=== PATIENT | female | born 1935 | race Caucasian/White ===

== ENCOUNTER 2017-01-27 17:55 | Inpatient (IN) | payer MEDICARE, BC ==
[2017-01-27] MEDS ORDERED: SODIUM CHLORIDE 0.9% 500 ML IV STA (18:14)
[2017-01-27] MEDS ORDERED: ACETAMINOPHEN TAB 500 MG TAB PO STA (18:14)
--- NOTE | 2017-01-27 18:16 | ED ---
Fever HPI - General Chief Complaint: Fever Stated Complaint: Fever Time Seen by Provider: 01/27/17 18:09 Source: patient, RN notes reviewed Mode of arrival: ambulatory Limitations: no limitations - History of Present Illness Initial Comments: 81-year-old female presents emergency Department with chief complaint of fever. Patient states that she was released from the hospital last week from [facility] for chest pain/pneumonia. Patient took antibiotics for 3 days after being discharged. She was in the hospital 8 days. Patient states that she does not have any complaints no family member states that she's been coughing as well to fever. Patient saw primary care physician yesterday and was told that she had some fluid in her right lung. Patient denies any dysuria or hematuria. Patient states she has a slight scratchy sore throat but nothing much. Patient denies any recent Tylenol or ibuprofen. 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 Patient states that she had one treatment of chemotherapy ended up in the hospital for her chest pain. Patient is Scheduled Next Week for Chemotherapy. Patient's Oncologist Is Dr. perry - Related Data Home Medications Medication Instructions Recorded Confirmed Atorvastatin [Lipitor] 40 mg PO DAILY 01/27/17 01/27/17 Levothyroxine Sodium [Synthroid] 88 mcg PO DAILY 01/27/17 01/27/17 Lidocaine-Prilocaine Cream [Emla 1 applic TOPICAL DAILY PRN 01/27/17 01/27/17 Cream 2.5%/2.5%] Metoprolol Succinate (ER) [Toprol 25 mg PO DAILY 01/27/17 01/27/17 Xl] Nitroglycerin Sl Tabs [Nitrostat] 0.4 mg SUBLINGUAL Q5M PRN 01/27/17 01/27/17 Allergies Allergy/AdvReac Type Severity Reaction Status Date / Time iodine Allergy Swelling Verified 01/27/17 18:47 of Eyes Review of Systems ROS Statement: Those systems with pertinent positive or pertinent negative responses have been documented in the HPI. ROS Other: All systems not noted in ROS Statement are negative. Past Medical History Past Medical History: Cancer, Hyperlipidemia, Hypertension, Thyroid Disorder Additional Past Medical History / Comment(s): leukemia History of Any Multi-Drug Resistant Organisms: None Reported Past Surgical History: Bladder Surgery Past Psychological History: No Psychological Hx Reported Smoking Status: Former smoker Past Alcohol Use History: None Reported Past Drug Use History: None Reported General Exam Limitations: no limitations General appearance: alert, in no apparent distress Head exam: Present: atraumatic, normocephalic, normal inspection Eye exam: Present: normal appearance, PERRL, EOMI. Absent: scleral icterus, conjunctival injection, periorbital swelling ENT exam: Present: normal exam, normal oropharynx, mucous membranes moist, TM's normal bilaterally, normal external ear exam Neck exam: Present: normal inspection, full ROM. Absent: tenderness, meningismus, lymphadenopathy Respiratory exam: Present: normal lung sounds bilaterally. Absent: respiratory distress, wheezes, rales, rhonchi, stridor Cardiovascular Exam: Present: regular rate, normal rhythm, normal heart sounds. Absent: systolic murmur, diastolic murmur, rubs, gallop, clicks GI/Abdominal exam: Present: soft, normal bowel sounds. Absent: distended, tenderness, guarding, rebound, rigid Neurological exam: Present: alert Skin exam: Present: warm, dry Course Vital Signs 01/27/17 01/27/17 18:03 19:13 Temperature 102.3 F H 98.6 F Pulse Rate 79 88 Respiratory 18 18 Rate Blood Pressure 116/57 139/62 O2 Sat by Pulse 92 L 94 L Oximetry Medical Decision Making - Lab Data Result diagrams: 01/27/17 18:45 01/27/17 18:45 Lab Results 01/27/17 01/27/17 01/27/17 Range/Units 18:08 18:08 18:45 WBC 19.3 H (3.8-10.6) k/uL RBC 3.45 L (3.80-5.40) m/uL Hgb 10.7 L (11.4-16.0) gm/dL Hct 30.6 L (34.0-46.0) % MCV 88.6 (80.0-100.0) fL MCH 31.0 (25.0-35.0) pg MCHC 35.1 (31.0-37.0) g/dL RDW 17.9 H (11.5-15.5) % Plt Count 31 L* (150-450) k/uL Sodium (137-145) mmol/L Potassium (3.5-5.1) mmol/L Chloride (98-107) mmol/L Carbon Dioxide (22-30) mmol/L Anion Gap mmol/L BUN (7-17) mg/dL Creatinine (0.52-1.04) mg/dL Est GFR (MDRD) Af Amer (>60 ml/min/1.73 sqM) Est GFR (MDRD) Non-Af (>60 ml/min/1.73 sqM) Glucose (74-99) mg/dL Plasma Lactic Acid Wu (0.7-2.0) mmol/L Calcium (8.4-10.2) mg/dL Total Bilirubin (0.2-1.3) mg/dL AST (14-36) U/L ALT (9-52) U/L Alkaline Phosphatase (38-126) U/L Total Protein (6.3-8.2) g/dL Albumin (3.5-5.0) g/dL Urine Color Yellow Urine Appearance Cloudy H (Clear) Urine pH 6.0 (5.0-8.0) Ur Specific Wildrose 1.021 (1.001-1.035) Urine Protein 1+ H (Negative) Urine Glucose (UA) Negative (Negative) Urine Ketones Negative (Negative) Urine Blood Small H (Negative) Urine Nitrite Negative (Negative) Urine Bilirubin Negative (Negative) Urine Urobilinogen 3.0 (<2.0) mg/dL Ur Leukocyte Esterase Negative (Negative) Urine RBC 5 (0-5) /hpf Urine WBC 3 (0-5) /hpf Ur Squamous Epith Cells 14 H (0-4) /hpf Urine Bacteria Rare H (None) /hpf Urine Mucus Rare H (None) /hpf Influenza Type A RNA Not Detected (Not Detectd) Influenza Type B (PCR) Not Detected (Not Detectd) 01/27/17 01/27/17 Range/Units 18:45 18:45 WBC (3.8-10.6) k/uL RBC (3.80-5.40) m/uL Hgb (11.4-16.0) gm/dL Hct (34.0-46.0) % MCV (80.0-100.0) fL MCH (25.0-35.0) pg MCHC (31.0-37.0) g/dL RDW (11.5-15.5) % Plt Count (150-450) k/uL Sodium 140 (137-145) mmol/L Potassium 4.1 (3.5-5.1) mmol/L Chloride 109 H (98-107) mmol/L Carbon Dioxide 26 (22-30) mmol/L Anion Gap 5 mmol/L BUN 26 H (7-17) mg/dL Creatinine 1.08 H (0.52-1.04) mg/dL Est GFR (MDRD) Af Amer 59 (>60 ml/min/1.73 sqM) Est GFR (MDRD) Non-Af 49 (>60 ml/min/1.73 sqM) Glucose 111 H (74-99) mg/dL Plasma Lactic Acid Wu 1.0 (0.7-2.0) mmol/L Calcium 8.6 (8.4-10.2) mg/dL Total Bilirubin 0.9 (0.2-1.3) mg/dL AST 42 H (14-36) U/L ALT 40 (9-52) U/L Alkaline Phosphatase 105 (38-126) U/L Total Protein 7.0 (6.3-8.2) g/dL Albumin 3.4 L (3.5-5.0) g/dL Urine Color Urine Appearance (Clear) Urine pH (5.0-8.0) Ur Specific Wildrose (1.001-1.035) Urine Protein (Negative) Urine Glucose (UA) (Negative) Urine Ketones (Negative) Urine Blood (Negative) Urine Nitrite (Negative) Urine Bilirubin (Negative) Urine Urobilinogen (<2.0) mg/dL Ur Leukocyte Esterase (Negative) Urine RBC (0-5) /hpf Urine WBC (0-5) /hpf Ur Squamous Epith Cells (0-4) /hpf Urine Bacteria (None) /hpf Urine Mucus (None) /hpf Influenza Type A RNA (Not Detectd) Influenza Type B (PCR) (Not Detectd) Disposition Clinical Impression: Pneumonia, Leukemia Disposition: ADMITTED IP TO THIS HOSP Condition: Fair
--- NOTE | 2017-01-27 18:34 | XR ---
EXAMINATION TYPE: XR chest 2V DATE OF EXAM: 01/27/2017 6:28 PM HISTORY: Shortness of breath. COMPARISON: June 03, 2010 TECHNIQUE: Single view of the chest is submitted. FINDINGS: Demonstrated are scattered senescent parenchymal change. There is no evidence for focal infiltrate. The heart is stable. Hilar and mediastinal structures are within normal limits. Degenerative changes are seen of the dorsal spine. IMPRESSION: 1. Chronic changes without evidence for acute pulmonary disease.
[2017-01-27 19:14] LABS: Anisocytosis Slight; CH 29.4; CHCM 33.3; HCT 30.6 % (34.0-46.0); HDW 3.14; HGB 10.7 gm/dL (11.4-16.0); MCHC 35.1 g/dL (31.0-37.0); MCV 88.6 fL (80.0-100.0); RBC 3.45 m/uL (3.80-5.40); RDW 17.9 % (11.5-15.5); WBC 19.3 k/uL (3.8-10.6); WBC (Perox) 20.46
[2017-01-27 19:15] LABS: Calcium 8.6 mg/dL (8.4-10.2); Potassium 4.1 mmol/L (3.5-5.1); Total Bilirubin 0.9 mg/dL (0.2-1.3)
[2017-01-27 19:52] LABS: Appearance,Urine Cloudy (Clear); Bacteria,Urine Rare /hpf; Bilirubin,Urine Negative (Negative); Glucose,Urine (UA) Negative (Negative); Ketones,Urine Negative (Negative); Leukocyte Esterase,Urine Negative (Negative); Mucus,Urine Rare /hpf; Nitrite,Urine Negative (Negative); Particle Count 3134; Protein,Urine 1+ (Negative); RBC,Urine 5 /hpf (0-5); Specific Gravity,Urine 1.021 (1.001-1.035); Squamous Epithelial Cell,Urine 14 /hpf (0-4); UA Billing (MACRO vs. MICRO) MICRO; WBC,Urine 3 /hpf (0-5)
[2017-01-27] MEDS ORDERED: LEVOFLOXACIN 750MG-D5W PMX 750 MG in DEXTROSE/WATER 1 150ML.BAG IVPB STA (20:06)
[2017-01-27] MEDS ORDERED: PNEUMONIA PROTOCOL UTILIZED 1 EACH MISC PO PRN (20:06)
[2017-01-27] MEDS ORDERED: PIPERACILLIN-TAZOBACTAM 3.375 GM in DEXTROSE/WATER 1 50ML.BAG IVPB STA (20:09)
[2017-01-27] MEDS: SODIUM CHLORIDE 0.9% 1,000 ML IV SCH (20:50)
[2017-01-27 20:58] LABS: Add Differential Manual Differential
[2017-01-27 21:02] LABS: Nucleated Red Blood Cells 0 /100 WBC (0-0); Total Cells Counted 200
[2017-01-27] MEDS ORDERED: LIDOCAINE-PRILOCAINE 2.5-2.5% CREAM 5 GM TUBE TOPICAL PRN (21:41)
--- NOTE | 2017-01-27 22:20 | CT ---
EXAM: CT Chest Without Intravenous Contrast CLINICAL HISTORY: Reason: pneumonia TECHNIQUE: Axial computed tomography images of the chest without intravenous contrast. CTDI is 4.10 mGy and DLP is 164.0 mGy-cm This CT exam was performed using one or more of the following dose reduction techniques: automated exposure control, adjustment of the mA and/or kV according to patient size, and/or use of iterative reconstruction technique. COMPARISON: No relevant prior studies available. FINDINGS: Lungs: Unremarkable. No mass. No consolidation. Pleural space: Scarring at the anterior lung bases. Groundglass opacities, interstitial thickening as well as nodular opacities at the anterosuperior aspect of the right upper lobe. Consider infectious etiology. Also, probably infectious nodules at the posterior aspect of the right lower lobe image 26 series 4 for example. No other consolidation, pleural effusion or pneumothorax. Heart: Multivessel coronary calcifications. No significant pericardial effusion. Bones/joints: No suspicious lytic or sclerotic lesions of bone. No acute fracture. No dislocation. Soft tissues: Unremarkable. Vasculature: 4.6 cm incompletely imaged fusiform abdominal aortic aneurysm, infrarenal. Lymph nodes: Unremarkable. No enlarged lymph nodes. Kidneys and ureters: Bilateral perinephric stranding spondylytic age or scarring absence of any clinical concern for infection. Exophytic renal cyst along the anterior aspect of the left kidney. IMPRESSION: Findings suspicious for right upper lobe and right lower lobe infectious processes.
[2017-01-27 23:28] VITALS: BMI 23.8
[2017-01-28] MEDS: SODIUM CHLORIDE 0.9% 1,000 ML IV SCH ×2 (03:09→16:36)
[2017-01-28] MEDS: LEVOTHYROXINE 88 MCG TAB PO SCH (06:09)
[2017-01-28 08:37] LABS: Blast Cells 88.5
--- NOTE | 2017-01-28 09:35 | HP ---
DATE OF ADMISSION: CHIEF COMPLAINT: An 81-year-old white female who presents with complaint of fever. She had leukemia treatment with chemotherapy for acute leukemia about 10 days out. She has had 2 blood transfusions in the past week. Has ( ) in the right lung. Denies any dysuria or hematuria. She has a sore throat. Been diagnosed with leukemia on chemotherapy. She has had low pulse oximetry. She was placed on oxygen. She was started on Levaquin and Zosyn for antibiotics and updraft treatments. She has hypertension, dyslipidemia, hypothyroidism and acute onset leukemia. ALLERGIES: IODINE. REVIEW OF SYSTEMS: A 14-point review of system negative except for what is stated in HPI. PAST MEDICAL HISTORY: Cancer, dyslipidemia, hypertension, hypothyroidism, leukemia, bladder surgery. Former smoker. She likes to [employer]. She is single. She has 2 kids, 12 great grandkids. PHYSICAL EXAM: She is lying comfortably in bed. O2 sat 95% on 2 L. HEAD: Normocephalic, atraumatic. OPHTHALMOLOGIC: Pupils equal, round and reactive to light. ENT: ( ). No thyromegaly. NECK: Supple. Lungs show transmitted upper airway sounds, scattered rhonchi. HEART: Regular rate and rhythm . Temp 102.3 on admission and 98.6 now. Pulse rate is 79 to 88. Respiratory rate is 18 to 20. Blood pressure 116 to 139 over 56. O2 is 92% to 94% on 2 liters. GI: Normal bowel sounds. NEUROLOGIC: Alert and oriented x3. SKIN: Warm, dry and intact. White count of 19.3, hemoglobin 10.7. BUN 26, creatinine 1.08. Albumin is low at 3.4. ASSESSMENT: 1. Pneumonia. 2. Acute respiratory distress secondary to pneumonia. 3. Leukocytosis secondary to pneumonia. 4. Leukemia. Being treated by Dr. Floyd. Continue with IV antibiotics, IV fluids, updraft treatments. Wait for Dr. Floyd's consultation.
[2017-01-28] MEDS: PIPERACILLIN-TAZOBACTAM 3.375 GM in DEXTROSE/WATER 1 50ML.BAG IVPB SCH ×3 (09:38→23:13)
[2017-01-28] MEDS: ATORVASTATIN 40 MG TAB PO SCH (09:38)
[2017-01-28] MEDS: METOPROLOL SUCCINATE (ER) 25 MG TAB.ER.24H PO SCH (09:38)
[2017-01-28 09:48] LABS: Anisocytosis Slight; CHCM 32.3; HCT 28.2 % (34.0-46.0); HDW 3.11; HGB 9.5 gm/dL (11.4-16.0); MCH 30.4 pg (25.0-35.0); MCHC 33.6 g/dL (31.0-37.0); MCV 90.4 fL (80.0-100.0); Mean Platelet Volume 11.2; RBC 3.12 m/uL (3.80-5.40); WBC 13.9 k/uL (3.8-10.6)
[2017-01-28 10:21] LABS: Calcium 7.9 mg/dL (8.4-10.2); Potassium 4.2 mmol/L (3.5-5.1); Total Bilirubin 0.9 mg/dL (0.2-1.3); Total Protein 6.2 g/dL (6.3-8.2)
--- NOTE | 2017-01-28 11:35 | HP ---
DATE OF ADMISSION: CHIEF COMPLAINT: An 81-year-old white female with cough, congestion, shortness of breath, fevers. She was sent home from [facility] for chest pain, pneumonia, took antibiotics for 3 days, was discharged. Due to high fever, she was brought to the hospital at this time, was admitted at this time for pneumonia. She was started on 2 antibiotics. She is scheduled next week for chemotherapy. Dr. Floyd saw her the last couple days and took care of her. HOME MEDICATIONS: 1. Lipitor. 2. Synthroid. 3. EMLA cream. 4. Metoprolol. 5. Nitrostat. A 14-point review of systems negative. ALLERGIES: IODINE. PAST MEDICAL HISTORY: As mentioned, acute leukemia for which she is being treated, hyperlipidemia, hypertension, hypothyroidism, prior bladder surgery. PHYSICAL EXAM: Thin, cachectic. Vital signs are reviewed. CARDIOVASCULAR: S1, S2. Lungs show right-sided rales and rhonchi x4. HEMATOLOGIC: Homans. PSYCHIATRIC: Fair mood and affect. NEUROLOGIC: Alert and oriented x3. ASSESSMENT: 1. Pneumonia right upper and right lower lobe. 2. Acute respiratory failure. 3. Fevers secondary to pneumonia. 4. Acute leukemia being treated by Dr. Floyd. 5. Acute on chronic anemia. Continue with IV antibiotics, IV fluids. Home medicines will be continued, updrafts p.r.n. Please see further orders.
[2017-01-28 11:43] LABS: Add Differential Manual Differential
[2017-01-28 11:53] LABS: Nucleated Red Blood Cells 0 /100 WBC (0-0)
[2017-01-28 11:56] LABS: Blast Cells 80.5; Total Cells Counted 200
[2017-01-28] MEDS: CLOTRIMAZOLE TROCHE 10 MG TROCHE MUCOUS MEM SCH ×4 (12:00→23:13)
--- NOTE | 2017-01-28 13:29 | XR ---
EXAMINATION TYPE: XR chest 2V DATE OF EXAM: 01/28/2017 1:06 PM COMPARISON: 01/27/2017 HISTORY: Shortness of breath TECHNIQUE: Frontal and lateral views of the chest are obtained. FINDINGS: Scattered senescent parenchymal changes noted. Hyperinflation compatible with COPD. No evidence for infiltrate. No evidence for atelectasis. Heart size is enlarged with mild pulmonary venous congestion. Mediastinal structures are stable and grossly unremarkable. No evidence for hilar prominence. Degenerative changes dorsal spine. IMPRESSION: 1. No evidence for acute pulmonary disease.
--- NOTE | 2017-01-28 17:33 | P.CONS ---
History of Present Illness - Reason for Consult Consult date: 01/28/17 leukemia Requesting physician: Juan Mccurdy - Chief Complaint fever - History of Present Illness We are consulted to see pt for leukemia, on chemotherapy, pt states being treated by Dr. Floyd-unfortunately I have no record of her being seen or treated in our office, there are no records associated with previous admissions to [facility] that I can review. Pt is unable to tell me what kind of leukemia she has, she states she has had 2 chemotherapy treatments but she does not know the agent(s), she thinks she had treatment prior to a prolonged hospitalization for pneumonia at [facility] a few weeks ago. Pt states that she had chest heaviness, substernal and to the right side with associated SOB that brought her to the hospital, she was febrile on admit, she has been started on abx, CT chest negative for PE. Pt feels she is breathing better since admit, her chest does not hurt as much, she states no appetite, denies nausea or vomiting, indigestion, dysuria, diarrhea or constipation, no swelling, numbness or tingling. Review of Systems All systems: negative Constitutional: Reports as per HPI Past Medical History Past Medical History: Cancer, Hyperlipidemia, Hypertension, Thyroid Disorder Additional Past Medical History / Comment(s): leukemia History of Any Multi-Drug Resistant Organisms: None Reported Past Surgical History: Bladder Surgery Past Anesthesia/Blood Transfusion Reactions: No Reported Reaction Past Psychological History: No Psychological Hx Reported Smoking Status: Former smoker Past Alcohol Use History: None Reported Past Drug Use History: None Reported Medications and Allergies Home Medications Medication Instructions Recorded Confirmed Type Atorvastatin [Lipitor] 40 mg PO DAILY 01/27/17 01/27/17 History Levothyroxine Sodium [Synthroid] 88 mcg PO DAILY 01/27/17 01/27/17 History Lidocaine-Prilocaine Cream [Emla 1 applic TOPICAL DAILY PRN 01/27/17 01/27/17 History Cream 2.5%/2.5%] Metoprolol Succinate (ER) [Toprol 25 mg PO DAILY 01/27/17 01/27/17 History Xl] Nitroglycerin Sl Tabs [Nitrostat] 0.4 mg SUBLINGUAL Q5M PRN 01/27/17 01/27/17 History Allergies Allergy/AdvReac Type Severity Reaction Status Date / Time iodine Allergy Swelling Verified 01/27/17 18:47 of Eyes Physical Exam Vitals: Vital Signs Temp Pulse Pulse Resp BP BP Pulse Ox 01/28/17 15:15 82 16 01/28/17 15:00 98.6 F 82 16 127/70 93 L 01/28/17 08:30 92 L 01/28/17 08:00 76 18 01/28/17 07:00 98.7 F 76 18 117/53 92 L 01/27/17 23:31 94 L 01/27/17 22:35 97.5 F L 74 16 104/58 94 L 01/27/17 22:13 72 18 104/55 100 01/27/17 20:47 99.3 F 72 18 103/53 92 L Intake and Output 01/28/17 01/28/17 01/28/17 06:59 14:59 22:59 Intake Total 240 Balance 240 Intake: Oral 240 Other: Voiding Method Toilet Toilet Toilet # Voids 1 2 2 Weight 58.967 kg - Constitutional General appearance: average body habitus, cooperative, no acute distress - EENT dry mucus membranes, scant look of thrush on tongue Eyes: anicteric sclerae - Neck Neck: lymphadenopathy - Respiratory Respiratory: right: rales (scattered), left: CTA - Cardiovascular Rhythm: regular Heart sounds: normal: S1, S2 Abnormal Heart Sounds: no systolic murmur, no diastolic murmur, no rub, no S3 Gallop, no S4 Gallop, no click, no other leg Peripheral Edema: bilateral: Trace - Gastrointestinal General gastrointestinal: no absent bowel sounds, no decreased bowel sounds, no distended, no hepatomegaly, no hyperactive bowel sounds, normal bowel sounds, no organomegaly, no rigid, no scaphoid, soft, no splenomegaly, no tenderness, no umbilical hernia, no ventral hernia - Neurologic Neurologic: CNII-XII intact - Musculoskeletal Musculoskeletal: strength equal bilaterally - Psychiatric Psychiatric: A&O x's 3, appropriate affect, intact judgment & insight Results CBC & Chem 7: 01/28/17 09:15 01/28/17 09:15 Labs: Abnormal Lab Results - Last 24 Hours (Table) 01/28/17 01/28/17 Range/Units 09:15 09:15 WBC 13.9 H (3.8-10.6) k/uL RBC 3.12 L (3.80-5.40) m/uL Hgb 9.5 L (11.4-16.0) gm/dL Hct 28.2 L (34.0-46.0) % RDW 18.0 H (11.5-15.5) % Plt Count 27 L* (150-450) k/uL Lymphocytes # (Manual) 0.8 L (1.0-4.8) k/uL Chloride 113 H (98-107) mmol/L BUN 22 H (7-17) mg/dL Creatinine 1.07 H (0.52-1.04) mg/dL Glucose 114 H (74-99) mg/dL Calcium 7.9 L (8.4-10.2) mg/dL Total Protein 6.2 L (6.3-8.2) g/dL Albumin 2.8 L (3.5-5.0) g/dL Chest x-ray: report reviewed CT scan - chest: report reviewed Assessment and Plan (1) Leukemia Narrative/Plan: Pt does have peripheral blasts indicative of an acute leukemia, exact type and current treatment unknown at this time. Will review case with Dr. Floyd and update medical record. At this time agree with current treatment of pneumonia with antibiotics and hydration. Dietitian consulted for poor oral intake PT consulted to prevent medical debility. Status: Acute (2) Bicytopenia Narrative/Plan: Anemia and thrombocytopenia-related to leukemia, acute infection and treatment effects. No acute intervention for anemia, no ASA, NSAIDs or anticoagulants for platelet count <50,000. CBC daily Status: Acute
[2017-01-28] MEDS ORDERED: ARTIFICIAL TEARS-HYPROMELLOSE DROPS 15 ML BTL BOTH EYES PRN (19:27)
[2017-01-29] MEDS: SODIUM CHLORIDE 0.9% 1,000 ML IV SCH ×3 (03:24→20:46)
[2017-01-29] MEDS: LEVOTHYROXINE 88 MCG TAB PO SCH (06:15)
[2017-01-29] MEDS: PIPERACILLIN-TAZOBACTAM 3.375 GM in DEXTROSE/WATER 1 50ML.BAG IVPB SCH ×2 (09:05→17:09)
[2017-01-29] MEDS: ATORVASTATIN 40 MG TAB PO SCH (09:06)
[2017-01-29] MEDS: CLOTRIMAZOLE TROCHE 10 MG TROCHE MUCOUS MEM SCH ×4 (09:06→20:46)
[2017-01-29] MEDS: METOPROLOL SUCCINATE (ER) 25 MG TAB.ER.24H PO SCH (09:06)
--- NOTE | 2017-01-29 14:44 | CDI ---
In responding to this query, please exercise your independent professional judgment. The [facility] Coding Staff and Clinical Documentation Specialists appreciate your assistance in clarifying documentation, maintaining compliance with coding guidelines, accurately documenting patients condition and capturing severity of illness. The fact that a question is asked does not imply that any particular answer is desired or expected. Communication forms are a method of clarifying documentation and are not made part of the Legal Health Record. Thank you in advance for your clarification. Last Revision, August [address] [facility] [place] [address] Documentation Clarification Form Date: 01/29/2017 2:22:00 PM From: Hilda Harris Admit Date: 01/27/2017 8:03:00 PM Patient Name: Evelyn Okeefe Visit Number: [id number] Discharge Date: Dr. Derik Vaz Pneumonia was documented in your H&P and progress notes. History/Risk Factors: Leukemia, Hyperlipidemia, Hypertension, Thyroid disorder, Former smoker Clinical Indicators: Complaint of fever with prior history and treatment of pneumonia with antibiotics. She has been coughing, lungs are normal. WBC/Left shift: 19.3 Chest X-ray: chronic changes with evidence of acute pulmonary disease. CT Chest: Suspicious for right upper lobe and right lower lobe infectious process Lung/Breathing assessment: normal Treatment: Antibiotics: Levaquin IV, Zosyn IV Monitor O2 Sat's (titrate) Breathing Tx: Updrafts per orders In order to capture the severity of condition, please clarify if the condition signifies and you are treating for: Bacterial Pneumonia, specify causal organism (if known) Gram Negative Pneumonia Due to Strep Due to Staph Due to E. Coli Aspiration Pneumonia, identify if: Due to solids or liquids Due to anesthesia during L/D Other bacteria (specify) Viral Pneumonia, specify casual organism (if known) Healthcare Acquired Pneumonia/Pneumonia, unspecified Unable to determine Link any associated conditions to the pneumonia: Sepsis due to pneumonia Acute respiratory failure due to pneumonia Other, please specify Please document in your progress notes and discharge summary in order to capture severity of illness and risk of mortality. Include clinical findings that support your diagnosis. FYI: Press F11 to launch patient chart. Place X here if this finding has no clinical significance, is not applicable or if you are not able to provide any additional documentation. MTDD
[2017-01-29] MEDS ORDERED: LEVOFLOXACIN 750MG-D5W PMX 750 MG in DEXTROSE/WATER 1 150ML.BAG IVPB SCH (21:00)
[2017-01-30] MEDS: PIPERACILLIN-TAZOBACTAM 3.375 GM in DEXTROSE/WATER 1 50ML.BAG IVPB SCH ×3 (00:29→16:11)
[2017-01-30 06:06] LABS: Anisocytosis Slight; CH 29.2; CHCM 31.9; HCT 25.5 % (34.0-46.0); HDW 3.18; HGB 8.3 gm/dL (11.4-16.0); Hypochromasia Slight; Large Platelets Flag Marked; MCHC 32.6 g/dL (31.0-37.0); MCV 91.9 fL (80.0-100.0); Mean Platelet Volume 18.5; RBC 2.78 m/uL (3.80-5.40); RDW 18.2 % (11.5-15.5); WBC 15.1 k/uL (3.8-10.6); WBC (Perox) 17.69
[2017-01-30] MEDS: LEVOTHYROXINE 88 MCG TAB PO SCH ×2 (06:11→06:12)
[2017-01-30 06:21] LABS: Calcium 7.4 mg/dL (8.4-10.2); Potassium 3.9 mmol/L (3.5-5.1); Total Bilirubin 0.7 mg/dL (0.2-1.3); Total Protein 5.5 g/dL (6.3-8.2)
[2017-01-30 07:27] LABS: Add Differential Manual Differential
[2017-01-30] MEDS: ATORVASTATIN 40 MG TAB PO SCH (08:27)
[2017-01-30] MEDS: CLOTRIMAZOLE TROCHE 10 MG TROCHE MUCOUS MEM SCH ×4 (08:27→21:07)
[2017-01-30] MEDS: METOPROLOL SUCCINATE (ER) 25 MG TAB.ER.24H PO SCH (08:27)
[2017-01-30] MEDS: SODIUM CHLORIDE 0.9% 1,000 ML IV SCH ×3 (08:29→21:16)
[2017-01-30 08:31] LABS: Blast Cells 86.5; Nucleated Red Blood Cells 0 /100 WBC (0-0); Total Cells Counted 200
[2017-01-30 08:38] LABS: Large Platelets Present
--- NOTE | 2017-01-30 10:23 | PN ---
SUBJECTIVE: This is an 81-year-old white female who was admitted with right lower lobe, right upper lobe pneumonia. She has leukemia. She states she is feeling better, although she has not been ambulation yet. She still remains on IV antibiotics. Temperature 99, pulse 74, respirations 18, blood pressure 120s/50s, O2 of 93% on room air. LUNGS: Scattered rhonchi, right lower lobe and right upper lobe, otherwise clear. She looks thin and cachectic. CARDIOVASCULAR: S1 and S2. : No suprapubic tenderness. HEMATOLOGIC: Lymphoma. ASSESSMENT: 1. Right upper lobe pneumonia, right lower lobe pneumonia, 2. Leukemia. 3. Generalized debility. 4. Hypothyroidism. 5. Hypertension. 6. Chronic obstructive pulmonary disease. Continue current treatment. Possible discharge in the next 24 to 48 hours if patient continues to improve. Check labs in the morning.
--- NOTE | 2017-01-30 16:19 | P.PN ---
Subjective Principal diagnosis: AML Pt seen today in follow up. She is sitting up at bedside, she feels better, appetite is poor but no nausea, SOB, cough, abd pain, diarrhea, constipation or pain Objective - Vital Signs Vital signs: Vital Signs Temp 97.9 F 01/30/17 07:00 Pulse 68 01/30/17 08:00 Resp 16 01/30/17 08:00 BP 117/59 01/30/17 07:00 Pulse Ox 90 L 01/30/17 07:00 Intake & Output 01/29/17 01/30/17 01/30/17 18:59 06:59 18:59 Intake Total 800 1180 240 Balance 800 1180 240 Weight 58.967 kg Intake: Intake, IV Titration 800 Amount Sodium Chloride 0.9% 1, 800 000 ml @ 100 mls/hr IV . Q10H FREDDY Rx#:[id number] Oral 1180 240 Other: Voiding Method Toilet Toilet Toilet # Voids 2 2 3 - Constitutional General appearance: Present: average body habitus, cooperative, no acute distress - EENT Eyes: Present: normal appearance - Respiratory Respiratory: bilateral: CTA - Cardiovascular Heart sounds: normal: S1, S2 - Peripheral edema foot Peripheral Edema: bilateral: None - Gastrointestinal General gastrointestinal: Present: normal bowel sounds - Neurologic Neurologic: Present: CNII-XII intact - Musculoskeletal Musculoskeletal: Present: strength equal bilaterally - Psychiatric Psychiatric: Present: A&O x's 3, appropriate affect, intact judgment & insight - Labs CBC & Chem 7: 01/30/17 05:50 01/30/17 05:50 Labs: Abnormal Lab Results - Last 24 Hours (Table) 01/30/17 01/30/17 Range/Units 05:50 05:50 WBC 15.1 H (3.8-10.6) k/uL RBC 2.78 L (3.80-5.40) m/uL Hgb 8.3 L (11.4-16.0) gm/dL Hct 25.5 L (34.0-46.0) % RDW 18.2 H (11.5-15.5) % Plt Count 39 L* (150-450) k/uL Neutrophils # (Manual) 1.1 L (1.3-7.7) k/uL Lymphocytes # (Manual) 0.5 L (1.0-4.8) k/uL Chloride 114 H (98-107) mmol/L Creatinine 1.20 H (0.52-1.04) mg/dL Calcium 7.4 L (8.4-10.2) mg/dL Total Protein 5.5 L (6.3-8.2) g/dL Albumin 2.5 L (3.5-5.0) g/dL Assessment and Plan (1) Leukemia Narrative/Plan: Pt treatment for AML is on hold until she has completed antibiotic therapy for pneumonia. Her chemo appt for next week has been cancelled and she has a follow up sched with Dr. Floyd on 02/06. Her support/transportation person has been contacted directly with these appt adjustments. Status: Acute (2) Bicytopenia Narrative/Plan: Pt labs are low but in safe range. No transfusions, pt will have labs drawn outpatient Status: Acute Plan: Pt ok from Hem/Onc standpoint to be discharged when cleared by Attending
[2017-01-31] MEDS: PIPERACILLIN-TAZOBACTAM 3.375 GM in DEXTROSE/WATER 1 50ML.BAG IVPB SCH ×4 (00:54→23:10)
[2017-01-31 06:43] LABS: Anisocytosis Slight; CH 28.6; HCT 25.5 % (34.0-46.0); HDW 3.19; HGB 8.2 gm/dL (11.4-16.0); Hypochromasia Moderate; Immature Gran Flag Slight; Large Platelets Flag Marked; MCH 29.7 pg (25.0-35.0); MCV 92.8 fL (80.0-100.0); Mean Platelet Volume 16.5; RBC 2.74 m/uL (3.80-5.40); RDW 18.3 % (11.5-15.5); WBC 20.7 k/uL (3.8-10.6); WBC (Perox) 22.61
[2017-01-31 07:01] LABS: Calcium 7.5 mg/dL (8.4-10.2); Potassium 3.6 mmol/L (3.5-5.1)
[2017-01-31] MEDS: METOPROLOL SUCCINATE (ER) 25 MG TAB.ER.24H PO SCH (07:13)
[2017-01-31] MEDS: CLOTRIMAZOLE TROCHE 10 MG TROCHE MUCOUS MEM SCH ×4 (07:16→22:05)
[2017-01-31] MEDS: ATORVASTATIN 40 MG TAB PO SCH (07:16)
[2017-01-31 07:27] LABS: Add Differential Manual Differential
--- NOTE | 2017-01-31 09:32 | PN ---
DATE OF SERVICE: 01/30/2017 SUBJECTIVE: 81-year-old white female with pneumonia and leukemia. Patient continues on broad-spectrum antibiotics for right upper and right lower lobe pneumonia. She is slowly improving although she has not been ambulating. Discussed with her another day or 2 and will get her ambulation going and possible discharge home. Vital signs stable, afebrile. CARDIOVASCULAR: S1, S2. LUNGS: Transmitted upper airway sounds. HEMATOLOGIC: Negative Homans. PSYCHIATRIC: Fair mood and affect. Generalized debility. ASSESSMENT: 1. Acute leukemia. 2. Pneumonia, right upper and right lower lobe. She remains on 2 antibiotics and possible discharge home in the next 24 hours.
--- NOTE | 2017-01-31 16:48 | PN ---
DATE OF SERVICE: 01/31/2017 SUBJECTIVE: L[age]ly[age]hb[age]-old white female. She is sitting up in bed, feeling better. No nausea or vomiting. She has not really ambulated. She has been treated with 2 antibiotics for pneumonia, right upper and right lower lobe. She is slowly improving. Strength is not there yet. Temperature 97.9, pulse 68, respiratory rate 16 to 18, blood pressure 110 to 120 over 50s. Oxygen saturation 92% on room air. White count has increased from 15,000 to 20,000 today for no acute reason. Lungs show scattered rhonchi. HEART: S1, S2. No peripheral edema. Normal bowel sounds. NEUROLOGIC: Alert and oriented x3. ASSESSMENT: 1. Acute on chronic renal insufficiency. 2. Hypocalcemia. 3. Moderate protein-calorie malnutrition. 4. Right upper and right lower lobe pneumonia. Continues on 2 antibiotics. 5. Acute myelogenous leukemia. Treatment is on hold. 6. Bicytopenia, stabilizing. Will get infectious disease consult for elevated white count of 15,000 up to 20,000.
[2017-01-31] MEDS: SODIUM CHLORIDE 0.9% 1,000 ML IV SCH (17:04)
--- NOTE | 2017-01-31 17:20 | XR ---
EXAMINATION TYPE: XR chest 2V DATE OF EXAM: 01/31/2017 3:53 PM COMPARISON: Chest x-ray from [address] chest from 4 days ago. HISTORY: Pneumonia progress study. TECHNIQUE: Frontal and lateral views of the chest are obtained. FINDINGS: There is persistent left subclavian Mediport catheter. There is chronic parenchymal change with small right pleural effusion. Patchy infiltrates bilateral upper and lower lungs are felt stab le seen better on recent CT. There is perhaps new mild interstitial edema with Ricarda B lines in the left lung periphery. The cardiac silhouette size is mildly enlarged. The osseous structures are int act. IMPRESSION: Chronic parenchymal changes and mild cardiomegaly with probable stable patchy right upper and lower lung infiltrates, new mild interstitial edema and small right pleural effusion is noted.
[2017-01-31] MEDS ORDERED: LEVOFLOXACIN 750 MG TAB PO SCH (20:00)
[2017-02-01] MEDS: SODIUM CHLORIDE 0.9% 1,000 ML IV SCH ×2 (04:24→10:51)
[2017-02-01] MEDS: LEVOTHYROXINE 88 MCG TAB PO SCH (06:24)
[2017-02-01 06:39] LABS: Anisocytosis Slight; Basophils # (A) 0.2 k/uL (0-0.2); Basophils % (A) 1 %; CH 28.9; CHCM 31.6; Eosinophils % (A) 0 %; HCT 25.6 % (34.0-46.0); HDW 3.52; HGB 8.3 gm/dL (11.4-16.0); Hypochromasia Slight; Large Platelets Flag Marked; Luc # (Auto) 11.82; Luc % (Auto) 46; Lymphocytes # (A) 2.6 k/uL (1.0-4.8); Lymphocytes % (A) 10 %; MCH 29.8 pg (25.0-35.0); MCHC 32.3 g/dL (31.0-37.0); MCV 92.2 fL (80.0-100.0); Mean Platelet Volume 17.2; Monocytes % (A) 31 %; Neutrophils # (A) 2.9 k/uL (1.3-7.7); Neutrophils % (A) 11 %; Poikilocytosis Slight; RBC 2.78 m/uL (3.80-5.40); RDW 18.4 % (11.5-15.5); WBC (Perox) 29.09
[2017-02-01 06:46] LABS: Calcium 7.5 mg/dL (8.4-10.2); Potassium 3.9 mmol/L (3.5-5.1); Total Bilirubin 0.6 mg/dL (0.2-1.3); WBC 25.5 k/uL (3.8-10.6)
[2017-02-01] MEDS ORDERED: IV VANCOMYCIN PER PHARMACY 1 EACH MISC MISCELLANE PRN (07:12)
[2017-02-01] MEDS ORDERED: VANCOMYCIN 1,000 MG in SODIUM CHLORIDE 0.9% 250 ML IVPB ONE (08:00)
[2017-02-01] MEDS: CLOTRIMAZOLE TROCHE 10 MG TROCHE MUCOUS MEM SCH ×4 (09:11→22:03)
[2017-02-01] MEDS: ATORVASTATIN 40 MG TAB PO SCH (09:11)
[2017-02-01] MEDS: METOPROLOL SUCCINATE (ER) 25 MG TAB.ER.24H PO SCH (09:11)
[2017-02-01] MEDS: PIPERACILLIN-TAZOBACTAM 3.375 GM in DEXTROSE/WATER 1 50ML.BAG IVPB SCH ×3 (09:11→23:19)
--- NOTE | 2017-02-01 13:59 | PN ---
SUBJECTIVE: This is an 81-year-old white female with elevated white count. White count went up from 20,000 up to 25,000. The patient was kept here overnight for right upper right lower lobe pneumonia and started on IV vancomycin so the other antibiotics she has already been on Levaquin and Zosyn due to elevated white count. CARDIOVASCULAR: S1, S2. LUNGS: Scattered rhonchi and wheeze. HEMATOLOGIC: Negative Homans. PSYCHIATRIC: Fair mood and affect. ASSESSMENT: 1. Right upper right lower lobe pneumonia. 2. Dementia. 3. Osteoarthritis. 4. Elevated white count. Continue on vancomycin and Zosyn and Levaquin. ( ) next 24 to 48 hours. Pulmonary consult was reviewed.
--- NOTE | 2017-02-01 14:10 | P.CNPUL ---
History of Present Illness Consult date: 02/01/17 Reason for consult: abnormal CXR/CT Chief complaint: Elevated white blood cell count History of present illness: This is an 81-year-old female who presented emergency department apparently for elevated white blood cell count. The patient is a very poor historian and states that she was sent in because of abnormal labs. She is currently denying any wheezing, coughing, shortness of breath. The patient denies fevers and chills. Per the emergency department note the patient was complaining of a fever. She was recently discharged from [facility] for chest pain/pneumonia. Again per the emergency department notes a family member apparently stated that she had been coughing and having fevers. The patient is currently undergoing chemotherapy for AML. She did have a chest x-ray which showed chronic parenchymal changes, mild cardiomegaly, right-sided infiltrates, pulmonary edema , small right pleural effusion, and a left Mediport. She also had a computed tomography scan on 01/27/2017 which showed right-sided groundglass opacities, right upper lobe and right lower lobe nodular densities. The patient denies any use of home oxygen or breathing treatments. She denies any history of asthma or COPD. She is a former smoker she quit 2 months ago. She used to smoke 1 pack per day since the age of [age] years old. Review of Systems All systems: negative Past Medical History Past Medical History: Cancer, Hyperlipidemia, Hypertension, Thyroid Disorder Additional Past Medical History / Comment(s): leukemia History of Any Multi-Drug Resistant Organisms: None Reported Past Surgical History: Bladder Surgery Past Anesthesia/Blood Transfusion Reactions: No Reported Reaction Past Psychological History: No Psychological Hx Reported Smoking Status: Former smoker Past Alcohol Use History: None Reported Past Drug Use History: None Reported - Past Family History Mother Family Medical History: Cancer Additional Family Medical History / Comment(s): thyroid cancer Father Family Medical History: Myocardial Infarction (ME) Medications and Allergies Home Medications Medication Instructions Recorded Confirmed Type Atorvastatin [Lipitor] 40 mg PO DAILY 01/27/17 01/27/17 History Levothyroxine Sodium [Synthroid] 88 mcg PO DAILY 01/27/17 01/27/17 History Lidocaine-Prilocaine Cream [Emla 1 applic TOPICAL DAILY PRN 01/27/17 01/27/17 History Cream 2.5%/2.5%] Metoprolol Succinate (ER) [Toprol 25 mg PO DAILY 01/27/17 01/27/17 History Xl] Nitroglycerin Sl Tabs [Nitrostat] 0.4 mg SUBLINGUAL Q5M PRN 01/27/17 01/27/17 History Allergies Allergy/AdvReac Type Severity Reaction Status Date / Time iodine Allergy Swelling Verified 01/27/17 18:47 of Eyes Physical Exam Osteopathic Statement: *. No significant issues noted on an osteopathic structural exam other than those noted in the History and Physical/Consult. Vitals: Vital Signs Temp Pulse Resp BP Pulse Ox 02/01/17 08:00 88 20 02/01/17 07:00 97.9 F 88 20 117/74 97 01/31/17 23:02 96 F L 75 16 113/64 95 01/31/17 15:00 97.8 F 103 H 18 143/62 91 L 01/31/17 14:57 85 20 Intake and Output 01/31/17 02/01/17 02/01/17 22:59 06:59 14:59 Intake Total 300 650 Balance 300 650 Intake: IV 300 Sodium Chloride 0.9% 1, 300 000 ml @ 100 mls/hr IV . Q10H [facility] Rx#:[id number] Oral 650 Other: Voiding Method Toilet Toilet # Voids 1 1 1 # Bowel Movements 1 Weight 58.967 kg Gen.: Patient is alert and oriented 3, no acute distress, very poor historian Cardiovascular: Regular rate and rhythm, S1/S2 Lungs: Coarse breath sounds bilaterally with expiratory wheezing Abdomen: Soft nontender nondistended positive bowel sounds Extremities: Trace edema Results - Laboratory Findings CBC and BMP: 02/01/17 06:10 02/01/17 06:10 Abnormal lab findings: Abnormal Labs 01/28/17 01/28/17 01/30/17 09:15 09:15 05:50 WBC 13.9 H 15.1 H RBC 3.12 L 2.78 L Hgb 9.5 L 8.3 L Hct 28.2 L 25.5 L RDW 18.0 H 18.2 H Plt Count 27 L* 39 L* Neutrophils # (Manual) 1.1 L Lymphocytes # (Manual) 0.8 L 0.5 L Sodium Chloride 113 H BUN 22 H Creatinine 1.07 H Glucose 114 H Calcium 7.9 L AST Total Protein 6.2 L Albumin 2.8 L 01/30/17 01/31/17 01/31/17 05:50 06:14 06:14 WBC 20.7 H RBC 2.74 L Hgb 8.2 L Hct 25.5 L RDW 18.3 H Plt Count 49 L* Neutrophils # (Manual) Lymphocytes # (Manual) Sodium Chloride 114 H 115 H BUN Creatinine 1.20 H 1.10 H Glucose 102 H Calcium 7.4 L 7.5 L AST Total Protein 5.5 L Albumin 2.5 L 02/01/17 02/01/17 06:10 06:10 WBC 25.5 H* RBC 2.78 L Hgb 8.3 L Hct 25.6 L RDW 18.4 H Plt Count 60 L Neutrophils # (Manual) Lymphocytes # (Manual) Sodium 146 H Chloride 116 H BUN Creatinine 1.12 H Glucose 100 H Calcium 7.5 L AST 37 H Total Protein 6.0 L Albumin 2.8 L - Diagnostic Findings Chest x-ray: report reviewed, image reviewed CT scan - chest: report reviewed, image reviewed Assessment and Plan Plan: Acute hypoxic respiratory failure Right sided pneumonia Acute exacerbation of COPD Small right pleural effusion Right upper lobe and right lower lobe nodular opacities on CT scanning AML, undergoing chemotherapy Hypertension Dyslipidemia Hypothyroidism Bicytopenia Leukocytosis Hypernatremia Moderate protein calorie malnutrition Tobacco abuse O2 to maintain saturation greater than equal to 88% Antibiotics Steroid taper Pulmicort Duo nebs Continued smoking cessation is highly recommended Patient will need repeat computed tomography scan as an outpatient in 4-6 weeks to ensure clearance and to follow nodules Oncology recommendations Check influenza, mycoplasma, legionella Check IgE and HP panel GI and DVT Prophylaxis Thank you for this consultation. We will continue to follow along.
[2017-02-01] MEDS: HEPARIN SODIUM,PORCINE 5,000 UNIT/ML 1 ML VIAL SQ SCH ×2 (15:18→23:19)
[2017-02-01] MEDS: BUDESONIDE 0.5 MG/2 ML NEBU INHALATION SCH (20:24)
[2017-02-02] MEDS: SODIUM CHLORIDE 0.9% 1,000 ML IV SCH ×7 (04:02→11:45)
[2017-02-02] MEDS: LEVOTHYROXINE 88 MCG TAB PO SCH (06:20)
[2017-02-02 06:40] LABS: Anisocytosis Slight; CH 28.8; CHCM 31.2; HCT 23.6 % (34.0-46.0); HDW 3.71; HGB 7.6 gm/dL (11.4-16.0); Hypochromasia Moderate; Immature Gran Flag Slight; Large Platelets Flag Marked; MCH 30.2 pg (25.0-35.0); MCHC 32.4 g/dL (31.0-37.0); Mean Platelet Volume 16.2; Poikilocytosis Slight; RBC 2.53 m/uL (3.80-5.40); RDW 18.8 % (11.5-15.5); WBC (Perox) 33.31
[2017-02-02 06:50] LABS: WBC 29.1 k/uL (3.8-10.6)
[2017-02-02 06:59] LABS: Calcium 7.4 mg/dL (8.4-10.2); Potassium 3.8 mmol/L (3.5-5.1); Total Bilirubin 0.5 mg/dL (0.2-1.3); Total Protein 5.8 g/dL (6.3-8.2)
[2017-02-02 07:11] LABS: Add Differential Manual Differential
[2017-02-02] MEDS: BUDESONIDE 0.5 MG/2 ML NEBU INHALATION SCH ×2 (07:12→20:40)
[2017-02-02 07:20] LABS: Blast Cells 89.5; Nucleated Red Blood Cells 0 /100 WBC (0-0); Total Cells Counted 200
[2017-02-02] MEDS ORDERED: predniSONE 20 MG TAB PO SCH (09:00)
[2017-02-02 09:47] LABS: Large Platelets Present; Manual Review Performed
[2017-02-02] MEDS: PIPERACILLIN-TAZOBACTAM 3.375 GM in DEXTROSE/WATER 1 50ML.BAG IVPB SCH ×2 (09:51→16:05)
[2017-02-02] MEDS: HEPARIN SODIUM,PORCINE 5,000 UNIT/ML 1 ML VIAL SQ SCH ×2 (09:54→16:05)
[2017-02-02] MEDS: PANTOPRAZOLE 40 MG TABLET PO SCH (09:54)
[2017-02-02] MEDS: ATORVASTATIN 40 MG TAB PO SCH (09:54)
[2017-02-02] MEDS: CLOTRIMAZOLE TROCHE 10 MG TROCHE MUCOUS MEM SCH ×4 (09:54→22:03)
[2017-02-02] MEDS: METOPROLOL SUCCINATE (ER) 25 MG TAB.ER.24H PO SCH (09:54)
--- NOTE | 2017-02-02 10:59 | P.PN ---
Subjective Principal diagnosis: Leukemia Patient seen and examined. Patient states that she is not short of breath or having chest pain. She states she "feels fine." She has no needs or concerns at this time. Objective - Vital Signs Vital signs: Vital Signs Temp 98.1 F 02/02/17 07:00 Pulse 89 02/02/17 07:00 Resp 16 02/02/17 07:00 BP 120/63 02/02/17 07:00 Pulse Ox 93 L 02/02/17 07:12 Intake & Output 02/01/17 02/02/17 02/02/17 18:59 06:59 18:59 Intake Total 240 1590 Balance 240 1590 Weight 58.967 kg Intake: IV 1000 Sodium Chloride 0.9% 1, 1000 000 ml @ 125 mls/hr IV . Q8H [facility] Rx#:[id number] Oral 240 590 Other: Voiding Method Toilet Toilet Toilet # Voids 3 2 # Bowel Movements 1 - Exam Gen.: Patient is alert and oriented 3, no acute distress, very poor historian Cardiovascular: Regular rate and rhythm, S1/S2 Lungs: Diminished breath sounds bilaterally with scattered expiratory wheezing Abdomen: Soft nontender nondistended positive bowel sounds Extremities: Trace edema - Labs CBC & Chem 7: 02/02/17 06:10 02/02/17 06:10 Labs: Abnormal Lab Results - Last 24 Hours (Table) 02/02/17 02/02/17 Range/Units 06:10 06:10 WBC 29.1 H* (3.8-10.6) k/uL RBC 2.53 L (3.80-5.40) m/uL Hgb 7.6 L (11.4-16.0) gm/dL Hct 23.6 L (34.0-46.0) % RDW 18.8 H (11.5-15.5) % Plt Count 69 L (150-450) k/uL Neutrophils # (Manual) 0.7 L (1.3-7.7) k/uL Sodium 147 H (137-145) mmol/L Chloride 118 H (98-107) mmol/L Creatinine 1.14 H (0.52-1.04) mg/dL Calcium 7.4 L (8.4-10.2) mg/dL AST 38 H (14-36) U/L Total Protein 5.8 L (6.3-8.2) g/dL Albumin 2.6 L (3.5-5.0) g/dL Assessment and Plan Plan: Acute hypoxic respiratory failure Right sided pneumonia, healthcare acquired due to recent hospitalization at an outside facility Acute exacerbation of COPD Small right pleural effusion Right upper lobe and right lower lobe nodular opacities on CT scanning AML, undergoing chemotherapy Hypertension Dyslipidemia Hypothyroidism Bicytopenia Leukocytosis Hypernatremia Moderate protein calorie malnutrition Tobacco abuse O2 to maintain saturation greater than equal to 88% Antibiotics: Vanco and Zosyn Steroid taper Pulmicort Duo nebs Continued smoking cessation is highly recommended Patient will need repeat computed tomography scan as an outpatient in 4-6 weeks to ensure clearance and to follow nodules Oncology recommendations Influenza negative Pending mycoplasma, legionella Pending IgE and HP panel GI and DVT Prophylaxis
[2017-02-02] MEDS: VANCOMYCIN 1,000 MG in SODIUM CHLORIDE 0.9% 250 ML IVPB SCH (11:03)
[2017-02-02] MEDS: SODIUM CHLORIDE 0.45% 1,000 ML IV SCH ×2 (12:00→12:08)
[2017-02-03] MEDS: PIPERACILLIN-TAZOBACTAM 3.375 GM in DEXTROSE/WATER 1 50ML.BAG IVPB SCH ×3 (00:20→17:17)
[2017-02-03] MEDS: HEPARIN SODIUM,PORCINE 5,000 UNIT/ML 1 ML VIAL SQ SCH ×3 (00:20→17:18)
[2017-02-03] MEDS: SODIUM FERRIC GLUCONAT-SUCROSE 125 MG in SODIUM CHLORIDE 0.9% 100 ML IVPB SCH ×2 (04:35→22:02)
[2017-02-03] MEDS: LEVOTHYROXINE 88 MCG TAB PO SCH (06:29)
[2017-02-03 07:17] LABS: Anisocytosis Slight; CH 28.8; HCT 23.7 % (34.0-46.0); HDW 3.77; HGB 7.6 gm/dL (11.4-16.0); Hypochromasia Marked; Large Platelets Flag Marked; MCH 29.9 pg (25.0-35.0); MCHC 31.9 g/dL (31.0-37.0); MCV 93.8 fL (80.0-100.0); Mean Platelet Volume 15.3; Poikilocytosis Slight; RBC 2.53 m/uL (3.80-5.40); RDW 18.8 % (11.5-15.5); WBC (Perox) 40.51
--- NOTE | 2017-02-03 07:24 | CONS ---
DATE OF CONSULTATION: 02/02/2017 Reason for consultation is pneumonia. HISTORY OF PRESENT ILLNESS: The patient is an 81-year-old female who was brought into the [facility] apparently with chief complaints of fever. Patient apparently to have a history of leukemia for which the patient is getting some chemotherapy and was recently admitted to the [facility] where the patient was treated for pneumonia. Patient apparently took her antibiotics for about 3 days after discharge from hospital; however, started having the fever again and she presented to the [facility] ER. Patient has been evaluated at this facility. The patient did have a chest x-ray followed by a CT of the chest done on January 27 which did show features for right upper lobe and right lower lobe infectious process. Patient did have a fever of 102.3 degrees Fahrenheit and did have an elevated white count on admission of 19.3. Patient admitted with antibiotics in the form of Vanco and Zosyn. Patient also has been on steroid subsequently noticed to have the white count which has gone up to 25.5 as of yesterday and up to 29.1 today. Her steroid has been put on hold. I was asked to see the patient for further recommendation regarding antibiotic therapy. Patient is not a very good historian when asked specifically for any symptoms or symptomatology, so most of the information has been obtained from prior review of the chart. The patient cooperatively denies significant chest pain. She did have some mild cough, but not bringing up any sputum. No nausea, no vomiting. Denies significant swelling or swelling in the foot. No abdominal pain and no diarrhea. REVIEW OF SYSTEMS: Could not be reliably obtained with the positive ones have been mentioned in the HPI. Her past medical history significant for leukemia, hypothyroidism, hypertension, hyperlipidemia and recent admission to the hospital for pneumonia at [facility]. Also had a history of bladder surgery. SOCIAL HISTORY: Patient did have significant years of smoking, recently quit. No drinking or any drug use. FAMILY HISTORY: No pertinent findings were noticed. Allergies to IODINE. Medication include the patient is currently on DuoNeb, Lipitor, Pulmicort, Mycelex Patrick, heparin, Synthroid, Toprol-XL, Nitrostat, Protonix, pip/tazobactam and vancomycin. On examination, blood pressure is 113/56 with a pulse of 79, temperature 98.3. She is 98% on 2 L nasal cannula. General description is an elderly female up in the chair in no distress. No tachypnea or accessory muscle of respiration use. HEENT examination shows pallor, no scleral icterus. Oral mucous membrane is dry. NECK: Trachea central, no thyromegaly. LUNGS: Unlabored breathing. Some coarse breath sounds on the right side. No wheeze. HEART: S1, S2. Regular rate and rhythm. ABDOMEN: Soft, no tenderness. EXTREMITIES: No edema of the feet. SKIN EXAMINATION: No rash or mass palpable. Neurologically patient is awake, alert, oriented x3. Mood and affect normal. LABS: Hemoglobin is 7.6, white count of 29.9 with a BUN of 13, creatinine is 1.14, AST slightly elevated, ALT is normal. Lactic acid is 0.8. Urine showing a yeast species. Blood culture has been negative. UA on admission was negative, though. Influenza A and B x2 have been negative. Chest x-ray and CT as mentioned above. DIAGNOSTIC IMPRESSION AND PLAN: Patient admitted to hospital with sepsis in a patient who did have a fever with elevated white count meeting criteria for SIRS with evidence of right upper lobe infiltrate with concern for likely pneumonia in a patient who apparently has been at [facility] recently and was treated for pneumonia. It was important to cover for resistant Gram-positive as well as gram-negative pathogen though blood culture has been negative. Unfortunately, no sputum was collected to identify the infecting pathogen. PLAN: 1. The patient did have persistent elevated white count, rather a jump in the white count, though her fever has resolved and the patient clinically does not look toxic. The white count could be related to steroid the patient is already on, which has been discontinued today. 2. We will try to obtain sputum for gram-positive cultures and sensitivity. 3. Will repeat a CBC tomorrow after the steroid has been discontinued to see a downward trend. 4. Keep the patient on Zosyn and vancomycin at this point. We are awaiting to the sputum to be collected and culture to finalize. 5. Will follow on the clinical condition and cultures to further adjust the medication if needed. Thank you for this consultation. Will follow this patient along with you. DAVE
[2017-02-03 07:30] LABS: Calcium 7.7 mg/dL (8.4-10.2); Potassium 3.8 mmol/L (3.5-5.1); Total Bilirubin 0.5 mg/dL (0.2-1.3); Total Protein 5.9 g/dL (6.3-8.2)
--- NOTE | 2017-02-03 08:17 | PN ---
SUBJECTIVE: This is an 81-year-old white female with hypotension last night was given normal saline overnight due to hypotension. She was started on triple antibiotics. She continues to a bit better today after given fluids overnight at 125 mL an hour blood pressure 113/56, O2 is 98% on 2 liters. Temperature 98.3, pulse 79, respiratory rate 16 to 18. CARDIOVASCULAR: S1, S2. LUNGS: Show rhonchi at the right upper lobe, right lower lobe. GI: Soft, nontender. HEMATOLOGIC: Negative Homans. CARDIOVASCULAR: S1, S2. PSYCH: Fair mood and affect. NEUROLOGIC: Alert and oriented x3. LABS: White count 29.1, BUN 7.6, platelet count is 69,000. ( ) Leukocytosis. White count 29,000, hemoglobin is low at 7.6, ordered some iron through the IV. Sodium 147. ASSESSMENT: 1. Hypertension. 2. Right lower and upper lobe pneumonia. Prognosis extremely guarded. Cut down on normal saline to half normal saline. Monitor electrolytes.
[2017-02-03] MEDS ORDERED: predniSONE 50 MG TAB PO SCH (09:00)
[2017-02-03 10:11] LABS: Add Differential Manual Differential
[2017-02-03 10:15] LABS: Metamyelocytes % 0.5 %; Nucleated Red Blood Cells 1 /100 WBC (0-0); Total Cells Counted 200
[2017-02-03 10:16] LABS: Manual Review Performed; WBC 35.8 k/uL (3.8-10.6)
[2017-02-03 10:17] LABS: Large Platelets Present
[2017-02-03] MEDS: PANTOPRAZOLE 40 MG TABLET PO SCH (10:24)
[2017-02-03] MEDS: ATORVASTATIN 40 MG TAB PO SCH (10:25)
[2017-02-03] MEDS: CLOTRIMAZOLE TROCHE 10 MG TROCHE MUCOUS MEM SCH ×4 (10:25→22:02)
[2017-02-03] MEDS: METOPROLOL SUCCINATE (ER) 25 MG TAB.ER.24H PO SCH (10:25)
[2017-02-03] MEDS: VANCOMYCIN 1,000 MG in SODIUM CHLORIDE 0.9% 250 ML IVPB SCH (10:25)
[2017-02-03] MEDS: BUDESONIDE 0.5 MG/2 ML NEBU INHALATION SCH ×2 (10:56→21:33)
[2017-02-03] MEDS: IPRATROPIUM-ALBUTEROL 3 ML NEB INHALATION PRN ×2 (10:56→21:34)
[2017-02-03] MEDS: FLUCONAZOLE 100 MG TAB PO SCH (13:14)
[2017-02-03] MEDS: NYSTATIN 100,000 UNIT/ML SUSP 500,000 UNIT/5 ML CUP PO SCH ×3 (13:15→22:02)
--- NOTE | 2017-02-03 15:12 | CDI ---
In responding to this query, please exercise your independent professional judgment. The [facility] Coding Staff and Clinical Documentation Specialists appreciate your assistance in clarifying documentation, maintaining compliance with coding guidelines, accurately documenting patients condition and capturing severity of illness. The fact that a question is asked does not imply that any particular answer is desired or expected. Communication forms are a method of clarifying documentation and are not made part of the Legal Health Record. Thank you in advance for your clarification. Last Revision, August 2015 Clayton Zhao [address] [place] [address] Documentation Clarification Form Date: 01/29/2017 2:22:00 PM From: Hilda Harris Admit Date: 01/27/2017 8:03:00 PM Patient Name: Evelyn Okeefe Visit Number: [id number] Discharge Date: Dr. Derik Vaz Pneumonia was documented in your H&P and progress notes. History/Risk Factors: Leukemia, Hyperlipidemia, Hypertension, Thyroid disorder, Former smoker Clinical Indicators: Complaint of fever with prior history and treatment of pneumonia with antibiotics. She has been coughing, lungs are normal. WBC/Left shift: 19.3 Chest X-ray: chronic changes with evidence of acute pulmonary disease. CT Chest: Suspicious for right upper lobe and right lower lobe infectious process Lung/Breathing assessment: normal Treatment: Antibiotics: Levaquin IV, Zosyn IV Monitor O2 Sat's (titrate) Breathing Tx: Updrafts per orders In order to capture the severity of condition, please clarify if the condition signifies and you are treating for: Bacterial Pneumonia, specify causal organism (if known) Gram Negative Pneumonia Due to Strep Due to Staph Due to E. Coli Aspiration Pneumonia, identify if: Due to solids or liquids Due to anesthesia during L/D Other bacteria (specify) Viral Pneumonia, specify casual organism (if known) Healthcare Acquired Pneumonia/Pneumonia, unspecified Unable to determine Link any associated conditions to the pneumonia: Influenza with secondary gram negative pneumonia Sepsis due to pneumonia Acute respiratory failure due to pneumonia Other, please specify Please document in your progress notes and discharge summary in order to capture severity of illness and risk of mortality. Include clinical findings that support your diagnosis. FYI: Press F11 to launch patient chart. Place X here if this finding has no clinical significance, is not applicable or if you are not able to provide any additional documentation. MTDD
--- NOTE | 2017-02-03 15:50 | P.PN ---
Subjective 81-year-old female being seen with the attending this morning. Patient is denying any shortness of breath dizziness lightheadedness or chest pain. Patients being followed by pulmonology and infectious disease and hematology service. Patients being treated for right-sided pneumonia healthcare acquired due to a recent hospitalization at an outside facility as well as AML in which treatment is on hold until the patient completes antibiotic therapy for pneumonia. Objective - Vital Signs Vital signs: Vital Signs Temp 98.1 F 02/03/17 15:00 Pulse 83 02/03/17 15:00 Resp 16 02/03/17 15:00 BP 121/96 02/03/17 15:00 Pulse Ox 94 L 02/03/17 15:00 Intake & Output 02/02/17 02/03/17 02/03/17 18:59 06:59 18:59 Intake Total 1000 437.5 1150 Balance 1000 437.5 1150 Intake: IV 1000 437.5 750 Sodium Chloride 0.9% 1, 1000 437.5 750 000 ml @ 125 mls/hr IV . Q8H [facility] Rx#:[id number] Oral 400 Other: Voiding Method Toilet Toilet Toilet # Voids 2 - Exam Physical exam 81-year-old female pleasant oriented to person and place Lungs diminished at the bases otherwise adequate air movement Heart S1-S2 audible regular Abdomen soft nontender Extremities no edema noted - Labs CBC & Chem 7: 02/03/17 06:31 02/03/17 06:31 Labs: Abnormal Lab Results - Last 24 Hours (Table) 01/31/17 02/01/17 02/03/17 Range/Units 06:14 06:10 06:31 WBC 20.7 H 25.5 H* 35.8 H* (3.8-10.6) k/uL RBC 2.74 L 2.78 L 2.53 L (3.80-5.40) m/uL Hgb 8.2 L 8.3 L 7.6 L (11.4-16.0) gm/dL Hct 25.5 L 25.6 L 23.7 L (34.0-46.0) % RDW 18.3 H 18.4 H 18.8 H (11.5-15.5) % Plt Count 49 L* 60 L 71 L (150-450) k/uL Neutrophils # (Manual) 0.9 L (1.3-7.7) k/uL Monocytes # 8.0 H (0-1.0) k/uL Nucleated RBCs 1 H (0-0) /100 WBC Sodium (137-145) mmol/L Chloride (98-107) mmol/L Creatinine (0.52-1.04) mg/dL Glucose (74-99) mg/dL Calcium (8.4-10.2) mg/dL AST (14-36) U/L Total Protein (6.3-8.2) g/dL Albumin (3.5-5.0) g/dL 02/03/17 Range/Units 06:31 WBC (3.8-10.6) k/uL RBC (3.80-5.40) m/uL Hgb (11.4-16.0) gm/dL Hct (34.0-46.0) % RDW (11.5-15.5) % Plt Count (150-450) k/uL Neutrophils # (Manual) (1.3-7.7) k/uL Monocytes # (0-1.0) k/uL Nucleated RBCs (0-0) /100 WBC Sodium 147 H (137-145) mmol/L Chloride 117 H (98-107) mmol/L Creatinine 1.24 H (0.52-1.04) mg/dL Glucose 112 H (74-99) mg/dL Calcium 7.7 L (8.4-10.2) mg/dL AST 37 H (14-36) U/L Total Protein 5.9 L (6.3-8.2) g/dL Albumin 2.7 L (3.5-5.0) g/dL Assessment and Plan Plan: Impression Present on admission sirs meets sepsis criteria suspect due to right side pneumonia healthcare acquired due to a recent hospitalization at an outside facility AML undergoing chemotherapy Hypernatremia Moderate protein calorie malnutrition suspect due to poor caloric intake Tobacco abuse Leukocytosis Bicytopenia Small right pleural effusion Shortness of breath multifactorial acute hypoxic respiratory failure likely due to acute exacerbation of COPD with right side pneumonia healthcare acquired with sepsis CAT scan of the chest right upper lobe right lower lobe nodule opacities Persistent leukocytosis elevated white count suspect due to AML Leukocytosis present on admission suspect due to AML Plan Continue IV antibiotics per infectious disease DVT and GI prophylaxis Continue recommendations by hematology oncology For the recommendations pending The above dictated assessment and findings were discussed with dr ladan Encarnacion and the plan of care have been dictated as directed. Reina Golden nurse practitioner acting as a scribe for dr pickering
--- NOTE | 2017-02-03 19:41 | PN ---
DATE OF SERVICE: 02/03/2017 Patient is an 81-year-old female who was seen sitting up at the bedside. She is awake, alert. Does not complaining of any worsening shortness of breath. Denies any pain. She is afebrile, hemodynamically stable, in no acute distress. On physical exam: vital signs are temperature 97.5, heart rate 76, respiratory rate 16. Blood pressure is 107/57, oxygen saturation 91% on 2 L oxygen via nasal cannula. HEENT: Head is normocephalic, atraumatic. NECK: Supple. Trachea is midline. LUNGS: Decreased breath sounds. No clear rales or wheezes. HEART: S1 and S2 are heard; irregular. Not tachycardic. ABDOMEN: Soft. Bowel sounds are heard. EXTREMITIES: Two plus edema bilaterally. NEUROLOGIC: Patient is awake and alert. LABS: White count is 35.8, hemoglobin 7.6, hematocrit 23.7 with 71,000 platelets. Sodium is 147, potassium 3.8, chloride 117. CO2 is 26. Anion gap is 4. BUN is 16, creatinine 1.24. Glucose is 112. Calcium 7.7. Total bilirubin 0.5. ALT is 36, alkaline phosphatase 66. Total protein 5.9. Albumin is 2.7. No new imaging to review. IMPRESSION: 1. Acute hypoxic respiratory failure. 2. Right-sided pneumonia, healthcare-acquired. 3. Acute exacerbation of chronic obstructive pulmonary disease. 4. Small right pleural effusion. 5. Right upper lobe and right lower lobe nodular opacities on CT scan. 6. AML; undergoing chemotherapy. 7. Hypertension. 8. Dyslipidemia. 9. Hypothyroidism. 10. Pancytopenia. 11. Leukocytosis. 12. Hypernatremia. 13. Moderate protein-calorie malnutrition. 14. Tobacco abuse. PLAN: Continue current medications, which have been reviewed, with IV antibiotics with bronchodilators and aerosolized steroids. Continue oxygen to maintain saturations greater than or equal to 88%. Will continue prednisone taper, decreasing to 40 mg in the morning. Smoking cessation is highly recommended. Patient will require a repeat CT of the chest in 4 to 6 weeks as an outpatient to evaluate for clearance and follow up on nodules. Follow oncology recommendations. Mycoplasma, and legionella are pending. Continue GI and DVT prophylaxis. Will follow patient closely with you, making further changes as necessary. [facility]
--- NOTE | 2017-02-03 22:22 | PN ---
DATE OF SERVICE: 02/03/2017 Reason for follow-up: Pneumonia possible oral thrush. INTERVAL HISTORY: The patient is afebrile. She is complaining of some soreness of the throat. The patient denies any difficulty swallowing. The patient did have a cough, but not bringing up any sputum. Denies any chest pain. No abdominal pain. No diarrhea. On examination, blood pressure 121/96, pulse 83, temperature 98.1, she is 94% on 2 liters nasal cannula. General description is an elderly female, up in the bed in no distress. HEENT: Oral thrush. NECK: Trachea central, no thyromegaly. LUNGS: Unlabored breathing with decreased breath sounds at the bases. No wheeze. HEART: S1, S2. Regular rate and rhythm. ABDOMEN: Soft. No tenderness. LABS: Hemoglobin 10.6, white count 5.8 with a BUN of 16, creatinine 1.24. Blood culture negative. Sputum not collected. DIAGNOSTIC IMPRESSION AND PLAN: Patient admitted to hospital with fever with likely a component of pneumonia. The patient did have underlying immunosuppression from the leukemia with recent admission to the outside facility for pneumonia now with significantly elevation in the white count likely from underlying thrush and possible oropharyngeal candidiasis, Nystatin swish and swallow will be started in addition to the Diflucan. Aspiration pneumonia, continue the patient on antibiotic in the form of IV Zosyn , try to obtain sputum to narrow down her antibiotic. Repeat CBC tomorrow. Continue supportive care. [facility]
[2017-02-03] MEDS: NITROGLYCERIN SL TABS 0.4 MG TAB SUBLINGUAL PRN (22:51)
[2017-02-03 23:37] LABS: Creatine Kinase 30 U/L (30-135)
[2017-02-03 23:50] LABS: Creatine Kinase MB 1.8 ng/mL (0.0-2.4); Troponin I <0.012 ng/mL (0.000-0.034)
[2017-02-04] MEDS: PIPERACILLIN-TAZOBACTAM 3.375 GM in DEXTROSE/WATER 1 50ML.BAG IVPB SCH ×3 (00:37→16:05)
[2017-02-04] MEDS: HEPARIN SODIUM,PORCINE 5,000 UNIT/ML 1 ML VIAL SQ SCH ×3 (00:38→16:05)
[2017-02-04] MEDS: SODIUM CHLORIDE 0.45% 1,000 ML IV SCH (05:49)
[2017-02-04 06:19] LABS: Calcium 7.9 mg/dL (8.4-10.2); Potassium 3.9 mmol/L (3.5-5.1)
[2017-02-04 06:25] LABS: Anisocytosis Slight; CH 28.8; CHCM 31.7; HDW 3.91; Hypochromasia Moderate; Immature Gran Flag Slight; Large Platelets Flag Marked; MCH 29.1 pg (25.0-35.0); MCHC 31.7 g/dL (31.0-37.0); MCV 91.8 fL (80.0-100.0); Mean Platelet Volume 16.2; Poikilocytosis Slight; RDW 19.1 % (11.5-15.5); WBC (Perox) 52.32
[2017-02-04] MEDS ORDERED: FUROSEMIDE 10 MG/ML 4 ML VIAL IV STA (07:51)
[2017-02-04] MEDS: LEVOTHYROXINE 88 MCG TAB PO SCH (07:59)
[2017-02-04] MEDS ORDERED: VANCOMYCIN TROUGH DUE 1 EACH MISC MISCELLANE ONE (08:00)
[2017-02-04 08:27] LABS: Add Differential Manual Differential
[2017-02-04 08:32] LABS: Nucleated Red Blood Cells 1 /100 WBC (0-0); Total Cells Counted 200
[2017-02-04 08:33] LABS: Large Platelets Present; Manual Review Performed; WBC 49.1 k/uL (3.8-10.6)
[2017-02-04] MEDS: IPRATROPIUM-ALBUTEROL 3 ML NEB INHALATION PRN ×2 (09:13→12:55)
[2017-02-04] MEDS: BUDESONIDE 0.5 MG/2 ML NEBU INHALATION SCH ×2 (09:13→19:53)
[2017-02-04] MEDS: PANTOPRAZOLE 40 MG TABLET PO SCH (09:53)
[2017-02-04] MEDS: CLOTRIMAZOLE TROCHE 10 MG TROCHE MUCOUS MEM SCH ×4 (09:54→20:26)
[2017-02-04] MEDS: FLUCONAZOLE 100 MG TAB PO SCH (09:54)
[2017-02-04] MEDS: METOPROLOL SUCCINATE (ER) 25 MG TAB.ER.24H PO SCH (09:54)
[2017-02-04] MEDS: ATORVASTATIN 40 MG TAB PO SCH (09:54)
[2017-02-04] MEDS: NYSTATIN 100,000 UNIT/ML SUSP 500,000 UNIT/5 ML CUP PO SCH ×4 (09:55→20:26)
[2017-02-04] MEDS: predniSONE 20 MG TAB PO SCH (09:55)
[2017-02-04] MEDS: NITROGLYCERIN SL TABS 0.4 MG TAB SUBLINGUAL PRN (10:17)
[2017-02-04] MEDS: VANCOMYCIN 1,000 MG in SODIUM CHLORIDE 0.9% 250 ML IVPB SCH (10:25)
[2017-02-04] MEDS: FUROSEMIDE 10 MG/ML 2 ML VIAL IV SCH (10:25)
[2017-02-04] MEDS ORDERED: ALPRAZolam 0.5 MG TAB PO PRN (10:31)
--- NOTE | 2017-02-04 11:51 | ECHOF ---
Referral Reason:pain/shortness of breath/post procedure MEASUREMENTS -------- HEIGHT: 157.5 cm WEIGHT: 59.0 kg BP: 119/58 RVIDd: 3.4 cm (< 3.3) IVSd: 1.2 cm (0.6 - 1.1) LVIDd: 5.2 cm (3.9 - 5.3) LVPWd: 1.1 cm (0.6 - 1.1) IVSs: 1.6 cm LVIDs: 3.5 cm LVPWs: 1.5 cm LA Diam: 4.1 cm (2.7 - 3.8) LAESV Index (A-L): 31.25 ml/m Ao Diam: 2.9 cm (2.0 - 3.7) AV Cusp: 1.5 cm (1.5 - 2.6) LA Diam: 3.7 cm (2.7 - 3.8) MV EXCURSION: 15.618 mm (> 18.000) MV EF SLOPE: 124 mm/s (70 - 150) EPSS: 1.2 cm MV E Jacek: 1.03 m/s MV DecT: 158 ms MV A Jacek: 0.91 m/s MV E/A Ratio: 1.12 FINDINGS -------- Sinus rhythm with extra systolic beats. This was a technically good study. There is mild concentric left ventricular hypertrophy. Overall left ventricular systolic function is low-normal with, an EF between 50 - 55 %. The right ventricle is normal in size and function. LA is midly dilated 29-33ml/m2. RA appears enlarged. Aortic valve is trileaflet and is mildly thickened. There is no evidence of aortic regurgitation. There is no evidence of aortic stenosis. The mitral valve leaflets are mildly thickened. Mild mitral annular calcification present. [id number] mitral regurgitation is present. Moderate tricuspid regurgitation present. There is moderate to severe pulmonary hypertension. The right ventricular systolic pressure, as measured by Doppler, is about 60-65 mm of Hg The pulmonic valve is normal. The aortic root size is normal. The inferior vena cava is dilated with no significant inspiratory collapse which is consistent estimated right atrial pressure of >20 mmHg. There is a small pericardial effusion is located near the right ventricle. CONCLUSIONS -------- 1. Sinus rhythm with extra systolic beats. 2. There is moderate to severe pulmonary hypertension. 3. The aortic root size is normal. 4. The inferior vena cava is dilated with no significant inspiratory collapse which is consistent estimated right atrial pressure of >20 mmHg. 5. There is a small pericardial effusion is located near the right ventricle. 6. This was a technically good study. 7. There is mild concentric left ventricular hypertrophy. 8. LA is midly dilated 29-33ml/m2. 9. RA appears enlarged. 10. Aortic valve is trileaflet and is mildly thickened. 11. The mitral valve leaflets are mildly thickened. 12. Mild mitral annular calcification present. 13. [id number] mitral regurgitation is present. [employer]IC GUARD: Pilar Hernández RDCS
[2017-02-04] MEDS: METOPROLOL TARTRATE 50 MG TAB PO SCH (11:53)
[2017-02-04] MEDS: VANCOMYCIN 1,250 MG in SODIUM CHLORIDE 0.9% 250 ML IVPB SCH (12:41)
--- NOTE | 2017-02-04 12:47 | CONS ---
DATE OF CONSULTATION: This is an 81-year-old lady who is on the oncology floor. She has been admitted with elevated white count and pneumonia. She has a diagnosis of leukemia. The details of leukemia are unknown to me. However, after she was here on the floor, she complained of chest pain yesterday night and therefore, I was asked to see her. Her initial EKG revealed sinus mechanism with sinus tachycardia, nonspecific ST-T changes. EKG this morning revealed sinus mechanism with frequent PACs and isolated PVCs. However, her pain in the chest appears to be very atypical. It is reproducible. There is actually tenderness on the left anterior chest wall over her ribs. She also complained of feeling tired and fatigued, has no palpitations. With activity, she used to be short of breath. She came into the hospital on 01/27 with complaints of feeling feverish. She was released from [facility] where she was diagnosed with pneumonia, took antibiotics for 3 days and after arrival, she has been having cough, fever, and had elevated white count and there is also a diagnosis of pneumonia. She was scheduled for some chemotherapy the following week. As much as I could ask her, she is unable to give me any meaningful history with regards to her coronary disease. She does have hyperlipidemia, takes thyroid medications. She does not recall if she ever had a heart attack or a stroke. She has generalized weakness and lack of energy. PAST MEDICAL HISTORY: 1. Recent diagnosis of leukemia. 2. Hypertension. 3. Hyperlipidemia. 4. Hypothyroidism. 5. It is unclear if she had WA or CVA. 6. She has no diabetes. ALLERGIES: IODINE ALLERGY. MEDICATIONS: She takes metoprolol succinate 25 mg daily, atorvastatin 40 mg daily, levothyroxine 88 mcg daily. EKG revealed sinus mechanism, sinus tachycardia, nonspecific ST-T changes. Laboratory data revealed that two sets of troponins are normal. On examination, blood pressure is 138/70, pulse rate is about 92 per minute, regular. HEENT: Unremarkable. Fundus was not examined by me. Neck is supple. There is JVD of 2 cm, no carotid bruit. Heart exam reveals S1, S2 tachycardia, There is a short systolic murmur at the left upper sternal border. Lungs reveal bilateral diminished air entry. Abdomen is soft, nontender. Lower extremities reveal diminished pulses, there is trace edema. Central nervous system is grossly within normal limits with generalized weakness, but able to move all 4 extremities. Laboratory data revealed that 2 troponins are unremarkable including the one from this morning. IMPRESSION: 1. Atypical musculoskeletal chest pain. 2. Underlying coronary artery disease cannot be excluded given her multiple risk factors but her chest pain does not represent any acute myocardial ischemia. 3. Anemia. 4. Leukemia of unclear type. 5. History of pneumonia. 6. Recent hospitalization at [facility]. RECOMMENDATION: I am recommending an EKG to be repeated, Echocardiogram and an additional troponin was already performed. I will obtain the records from [facility]. Will increase the beta francine and change it to metoprolol tartrate 50 mg in the morning and 25 mg in the evening. I will also obtain thyroid function tests as well. Her electrolytes are good and the creatinine is mildly elevated, she may be a bit dehydrated. She is receiving blood transfusion. Prognosis remains guarded and will see her following the echo and EKG. Thank you very much for the consult.
--- NOTE | 2017-02-04 14:31 | PN ---
DATE OF SERVICE: 02/04/2017 Reason for followup is pneumonia, oral thrush. INTERVAL HISTORY: The patient is afebrile. She is breathing comfortably. She did have a cough, but not bringing up any sputum. The patient denies having any difficulty swallowing. Still some tickling in the throat. No abdominal pain and no diarrhea. On examination, blood pressure is 115/56 with a pulse of 98, temperature 97.9. She is 96% on 2 L nasal cannula. General description is an elderly female, up in the bed in no distress. HEENT EXAMINATION: Oral thrush is positive. LUNGS: Unlabored breathing. Some coarse breath sounds at the base. No wheeze. HEART: S1, S2, regular rate and rhythm. ABDOMEN: Soft. No tenderness. EXTREMITIES: No edema of the feet. LABS: Hemoglobin is 7 with a white count of 49.1 with a BUN of 19, creatinine is 1.22. Blood culture has been negative. Sputum not collected. DIAGNOSTIC IMPRESSION AND PLAN: Patient admitted to hospital with sepsis with most likely pneumonia now with persistently elevated white count. Patient's fever has resolved. Some elevated white count could be related to the oral thrush or possible oropharyngeal candidiasis. As for the pneumonia, we do not have a clear diagnosis as the sputum was not provided. Has been instructed to collect the sputum. Will discuss further with Oncology of elevated white count and anemia could be related to her underlying leukemia. Keep the patient on current antibiotic while awaiting for the work-up to finalize. Continue supportive care.
[2017-02-04] MEDS: IPRATROPIUM-ALBUTEROL 3 ML NEB INHALATION SCH ×2 (16:51→19:53)
--- NOTE | 2017-02-04 17:32 | P.PN ---
Subjective 81-year-old female being seen with the attending this morning. Patient is denying any shortness of breath dizziness lightheadedness or chest pain. Patients being followed by pulmonology and infectious disease and hematology service. Patients being treated for right-sided pneumonia healthcare acquired due to a recent hospitalization at an outside facility as well as AML in which treatment is on hold until the patient completes antibiotic therapy for pneumonia. The white counts morning is up to 49.1 potassium 3.8 patient states she feels slightly more short of breath with increase edema to the lower extremities with dry crackles at the bases patient did have an episode during the night of chest discomfort. The initial EKG showed sinus sinus tach. With PACs. Chest pain with evaluated by cardiology who felt was atypical. Cardiac enzymes were negative 3. Cardiology recommended increasing the beta francine and obtain thyroid studies and to obtain an echocardiogram. The echocardiogram showed overall left ventricular systolic function low normal with an EF between 50 and 55% with no valvular heart disease. Objective - Vital Signs Vital signs: Vital Signs Temp 98.1 F 02/04/17 14:52 Pulse 90 02/04/17 17:00 Resp 20 02/04/17 16:00 BP 132/61 02/04/17 14:52 Pulse Ox 92 L 02/04/17 14:52 Intake & Output 02/03/17 02/04/17 02/04/17 18:59 06:59 18:59 Intake Total 1950 650 310 Output Total 200 Balance 1950 450 310 Weight 58.967 kg Intake: IV 750 550 Piperacillin-Tazobactam 3 50 .375 gm In Dextrose/Water 1 50ml.bag @ 12.5 mls/hr IVPB Q8HR FREDDY Rx#: [id number] Sodium Chloride 0.45% 1, 400 000 ml @ 50 mls/hr IV . Q20H FREDDY Rx#:[id number] Sodium Chloride 0.9% 1, 750 000 ml @ 125 mls/hr IV . Q8H FREDDY Rx#:[id number] Sodium Ferric Gluconat- 100 Sucrose 125 mg In Sodium Chloride 0.9% 100 ml @ 100 mls/hr IVPB HS FREDDY Rx #:[id number] Oral 1200 100 Blood Product 310 Rc As-1 Unit 310 [id number] Output: Urine 200 Other: Voiding Method Toilet Toilet Toilet Bedside Commode # Voids 2 1 3 # Bowel Movements 1 - Exam Physical exam 81-year-old female pleasant oriented to person and place Lungs diminished at the bases otherwise adequate air movement Heart S1-S2 audible regular early denying chest pain Abdomen soft nontender Extremities no edema noted - Labs CBC & Chem 7: 02/04/17 05:52 02/04/17 05:52 Labs: Abnormal Lab Results - Last 24 Hours (Table) 02/04/17 02/04/17 02/04/17 Range/Units 05:52 05:52 07:49 WBC 49.1 H* (3.8-10.6) k/uL RBC 2.40 L (3.80-5.40) m/uL Hgb 7.0 L* (11.4-16.0) gm/dL Hct 22.0 L (34.0-46.0) % RDW 19.1 H (11.5-15.5) % Plt Count 87 L (150-450) k/uL Monocytes # (Manual) 2.5 H (0-1.0) k/uL Nucleated RBCs 1 H (0-0) /100 WBC Sodium 147 H (137-145) mmol/L Chloride 117 H (98-107) mmol/L BUN 19 H (7-17) mg/dL Creatinine 1.22 H (0.52-1.04) mg/dL Glucose 135 H (74-99) mg/dL Calcium 7.9 L (8.4-10.2) mg/dL Crossmatch See Detail Assessment and Plan Plan: Impression Present on admission sirs meets sepsis criteria suspect due to right side pneumonia healthcare acquired due to a recent hospitalization at an outside facility AML undergoing chemotherapy Hypernatremia Moderate protein calorie malnutrition suspect due to poor caloric intake Tobacco abuse Leukocytosis Bicytopenia Small right pleural effusion Shortness of breath multifactorial acute hypoxic respiratory failure likely due to acute exacerbation of COPD with right side pneumonia healthcare acquired with sepsis CAT scan of the chest right upper lobe right lower lobe nodule opacities Persistent leukocytosis elevated white count suspect due to AML Leukocytosis present on admission suspect due to AML Episode of chest pain felt to be atypical reactive enzymes 3 sets negative Echocardiogram obtained on February 04 shows left ventricular systolic function low normal with an EF between 50 and 55% Plan Continue IV antibiotics per infectious disease DVT and GI prophylaxis Continue recommendations by hematology oncology For the recommendations pending The above dictated assessment and findings were discussed with dr pickering Impression and the plan of care have been dictated as directed. Reina Golden nurse practitioner acting as a scribe for dr pickering
--- NOTE | 2017-02-04 18:28 | PN ---
DATE OF SERVICE: 02/04/2017 HISTORY OF PRESENT ILLNESS: Patient is an 81-year-old female who was admitted for problems with abnormal chest x-ray and elevated WBCs. She was having problems with fever. She had recently been at [facility] for problems with chest pain and pneumonia and had been having problems with coughing and fever. She has been on chemotherapy for her AML and had an x-ray that showed right-sided infiltrates, pulmonary edema, small right pleural effusion, mild cardiomegaly, chronic parenchymal changes and left Med-a-Port. She did have a CT scan in January towards the end that showed right-sided ground-glass opacities with right upper lobe and right lower lobe nodular densities. Subsequently she was admitted with hospital-acquired pneumonia with acute hypoxic respiratory failure. Patient is seen today. She has considerable problems with wheezing. She states that she is not feeling well in general. She denies any nausea, vomiting or diarrhea at this time. She states that she has frequent problems with chest pain and difficulty with breathing. She just received blood and is feeling a little bit better since she has gotten blood. She is having some problems with thrush. On physical examination, her vital signs show temperature 97.9, heart rate 100, respiratory rate 18. Blood pressure is 116/56, oxygen saturation 96%. Labs show WBC 49.1, hemoglobin 7, hematocrit 22, platelets 87; sodium 147, potassium 3.9, chloride 117, carbon dioxide 27; BUN 19, creatinine 1.22; glucose 135. Calcium is 7.9. Troponin is 0.016. Vancomycin trough was 6.2. Blood cultures with no growth. Urine is showing some yeast. GENERAL: Patient is an 81-year-old female who appears tired. HEENT: Head is atraumatic, normocephalic. Pupils are reactive, mucous membranes slightly dry. Thrush is present. NECK: Supple. Trachea midline. LUNG SOUNDS: Wheezes throughout, coarse. CARDIOVASCULAR: S1 and S2 heard, regular. ABDOMEN: Soft, nontender. EXTREMITIES: No edema. NEUROLOGIC: She is awake, alert. IMPRESSION: 1. Acute hypoxic respiratory failure on admission. 2. Hospital-acquired pneumonia on admission. 3. AML where she is getting chemotherapy. 4. Thrush. 5. Sepsis. 6. Atypical chest pain, most likely related to her anemia and breathing. 7. Acute exacerbation of chronic obstructive pulmonary disease. 8. Right upper lobe and right lower lobe nodular opacities. 9. Hypertension. PLAN: Continue patient with her present medications. Continue with nebulizer treatments, which have been changed to scheduled versus p.r.n. Continue with GI and DVT prophylaxis. Continue with antibiotic therapy. Continue with steroids as ordered. Lab work is pending. Will order x-ray for the morning. Continue to attempt to collect sputum sample. Continue with oxygen to keep saturations 92% or better. Will continue to follow patient with you.
[2017-02-04] MEDS: SODIUM FERRIC GLUCONAT-SUCROSE 125 MG in SODIUM CHLORIDE 0.9% 100 ML IVPB SCH (20:28)
[2017-02-04] MEDS ORDERED: METOPROLOL TARTRATE 25 MG TAB PO SCH (21:00)
[2017-02-05] MEDS: PIPERACILLIN-TAZOBACTAM 3.375 GM in DEXTROSE/WATER 1 50ML.BAG IVPB SCH ×3 (00:12→17:12)
[2017-02-05] MEDS: HEPARIN SODIUM,PORCINE 5,000 UNIT/ML 1 ML VIAL SQ SCH ×4 (00:12→23:52)
[2017-02-05] MEDS: SODIUM CHLORIDE 0.45% 1,000 ML IV SCH ×3 (04:30→18:16)
[2017-02-05] MEDS: VANCOMYCIN 1,250 MG in SODIUM CHLORIDE 0.9% 250 ML IVPB SCH ×2 (04:53→21:16)
[2017-02-05] MEDS: LEVOTHYROXINE 88 MCG TAB PO SCH (05:25)
[2017-02-05 07:54] LABS: Anisocytosis Slight; CH 29.2; CHCM 31.8; HCT 26.7 % (34.0-46.0); Hypochromasia Moderate; Immature Gran Flag Moderate; Large Platelets Flag Marked; MCH 30.6 pg (25.0-35.0); MCHC 32.9 g/dL (31.0-37.0); MCV 92.8 fL (80.0-100.0); Mean Platelet Volume 16.5; Poikilocytosis Slight; RBC 2.87 m/uL (3.80-5.40); RDW 18.6 % (11.5-15.5); WBC (Perox) 75.79
[2017-02-05 07:56] LABS: HGB 8.8 gm/dL (11.4-16.0)
[2017-02-05 07:57] LABS: WBC 68.4 k/uL (3.8-10.6)
[2017-02-05 07:58] LABS: Potassium 3.9 mmol/L (3.5-5.1)
--- NOTE | 2017-02-05 08:16 | XR ---
EXAMINATION TYPE: XR chest 2V DATE OF EXAM: 02/05/2017 7:30 AM COMPARISON: Prior chest x-ray January HISTORY: Shortness of breath TECHNIQUE: Frontal and lateral views of the chest are obtained. FINDINGS: There are prominent lung volumes. Blunting of the posterior costophrenic angles is noted. Heart is enlarged. Port-A-Cath is stable. No evident pneumothorax. Suspect coronary artery calcificat ion. Question some upper lobe airspace disease on the right. There is a spinal curvature. Interstitiu m is increased. IMPRESSION: Correlate to exclude congestive heart failure, there is right pleural effusion suspected . Difficult to exclude pneumonia. Underlying COPD noted.
[2017-02-05] MEDS: predniSONE 20 MG TAB PO SCH (08:19)
[2017-02-05] MEDS: CLOTRIMAZOLE TROCHE 10 MG TROCHE MUCOUS MEM SCH ×4 (08:20→21:24)
[2017-02-05] MEDS: PANTOPRAZOLE 40 MG TABLET PO SCH (08:20)
[2017-02-05] MEDS: NYSTATIN 100,000 UNIT/ML SUSP 500,000 UNIT/5 ML CUP PO SCH ×4 (08:20→21:24)
[2017-02-05] MEDS: FUROSEMIDE 10 MG/ML 2 ML VIAL IV SCH ×2 (08:20→08:23)
[2017-02-05] MEDS: ATORVASTATIN 40 MG TAB PO SCH (08:20)
[2017-02-05] MEDS: FLUCONAZOLE 100 MG TAB PO SCH (08:20)
[2017-02-05] MEDS: METOPROLOL TARTRATE 50 MG TAB PO SCH (08:20)
[2017-02-05] MEDS ORDERED: FUROSEMIDE 10 MG/ML 4 ML VIAL IV STA (08:24)
[2017-02-05 08:30] LABS: Add Differential Manual Differential
[2017-02-05 08:34] LABS: Band Neutrophils % 0.5 %; Blast Cells 88.5; Large Platelets Present; Manual Review Performed; Nucleated Red Blood Cells 0 /100 WBC (0-0); Spherocytes Present; Total Cells Counted 200
[2017-02-05] MEDS: BUDESONIDE 0.5 MG/2 ML NEBU INHALATION SCH ×2 (09:16→20:24)
[2017-02-05] MEDS: IPRATROPIUM-ALBUTEROL 3 ML NEB INHALATION SCH ×4 (09:16→20:24)
--- NOTE | 2017-02-05 12:14 | PN ---
Ms. Okeefe is more comfortable, resting. Denies any chest pain. Her hemoglobin is 8.8, blood pressure is 128/70, pulse rate 70 per minute, there are fine rales over both bases. There is a short systolic murmur. EKG revealed sinus mechanism. From a cardiac standpoint, I am not recommending any intervention. I recommend that we switch her Lasix from IV to p.o. 40 mg daily and I am awaiting the records from [facility]. No other intervention is necessary from a cardiac standpoint and I will continue to see her as needed. Her chest pain is quite atypical and no intervention necessary in this regard.
[2017-02-05] MEDS: predniSONE 10 MG TAB PO SCH (13:53)
--- NOTE | 2017-02-05 14:46 | P.PN ---
Subjective 81-year-old female being seen and examined this morning. Did speak with oncology service this morning about plan of care. The white count continues to go up. Patient's primary oncologist has been in to speak with the patient & patient's sister. A decision has been made this afternoon the patient and the patient's sister are opting for hospice care and hospice referral has been requested additionally patient has opted for a status at this time Objective - Vital Signs Vital signs: Vital Signs Temp 98.2 F 02/05/17 07:00 Pulse 88 02/05/17 09:26 Resp 20 02/05/17 08:00 BP 128/71 02/05/17 07:00 Pulse Ox 93 L 02/05/17 07:00 Intake & Output 02/04/17 02/05/17 02/05/17 18:59 06:59 18:59 Intake Total 310 550 Balance 310 550 Weight 58.967 kg Intake: IV 550 Piperacillin-Tazobactam 3 50 .375 gm In Dextrose/Water 1 50ml.bag @ 12.5 mls/hr IVPB Q8HR [facility] Rx#: [id number] Sodium Chloride 0.45% 1, 400 000 ml @ 50 mls/hr IV . Q20H FREDDY Rx#:[id number] Sodium Ferric Gluconat- 100 Sucrose 125 mg In Sodium Chloride 0.9% 100 ml @ 100 mls/hr IVPB HS FREDDY Rx #:[id number] Blood Product 310 Rc As-1 Unit 310 [id number] Other: Voiding Method Toilet Toilet Toilet Bedside Commode Bedside Commode Bedside Commode # Voids 3 2 # Bowel Movements 1 - Exam Physical exam 81-year-old female pleasant oriented to person and place currently patient is denying chest pain reports no appetite increased fatigue decreased endurance Lungs diminished at the bases otherwise adequate air movement Heart S1-S2 audible regular early denying chest pain Abdomen soft nontender poor oral intake denies abdominal pain does report "does not feel like eating Extremities decrease bilateral lower extremity edema noted - Labs CBC & Chem 7: 02/05/17 07:13 02/05/17 07:13 Labs: Abnormal Lab Results - Last 24 Hours (Table) 02/05/17 02/05/17 Range/Units 07:13 07:13 WBC 68.4 H* (3.8-10.6) k/uL RBC 2.87 L (3.80-5.40) m/uL Hgb 8.8 L D (11.4-16.0) gm/dL Hct 26.7 L (34.0-46.0) % RDW 18.6 H (11.5-15.5) % Plt Count 104 L (150-450) k/uL Monocytes # (Manual) 1.7 H (0-1.0) k/uL Sodium 150 H (137-145) mmol/L Chloride 116 H (98-107) mmol/L BUN 22 H (7-17) mg/dL Creatinine 1.37 H (0.52-1.04) mg/dL Glucose 101 H (74-99) mg/dL Calcium 8.0 L (8.4-10.2) mg/dL Assessment and Plan Plan: Impression Present on admission sirs meets sepsis criteria suspect due to right side pneumonia healthcare acquired due to a recent hospitalization at an outside facility AML undergoing chemotherapy Hypernatremia Moderate protein calorie malnutrition suspect due to poor caloric intake Tobacco abuse Leukocytosis Bicytopenia Small right pleural effusion Shortness of breath multifactorial acute hypoxic respiratory failure likely due to acute exacerbation of COPD with right side pneumonia healthcare acquired with sepsis CAT scan of the chest right upper lobe right lower lobe nodule opacities Persistent leukocytosis elevated white count suspect due to AML Leukocytosis present on admission suspect due to AML Episode of chest pain felt to be atypical reactive enzymes 3 sets negative Echocardiogram obtained on February 04 shows left ventricular systolic function low normal with an EF between 50 and 55% Physical debility due to comorbidities limited mobility Per advance directive patient is a no CODE STATUS with the request for hospice care Plan Continue IV antibiotics per infectious disease DVT and GI prophylaxis Continue recommendations by hematology oncology For the recommendations pending Will await hospice referral with recommendations patient and the sister are opting for the patient to go home after meeting with hospice Possible discharge tomorrow The above dictated assessment and findings were discussed with dr pickering Impression and the plan of care have been dictated as directed. Reina Golden nurse practitioner acting as a scribe for dr pickering
[2017-02-05] MEDS: FUROSEMIDE 40 MG TAB PO SCH (17:12)
--- NOTE | 2017-02-05 18:41 | P.PN ---
Subjective Principal diagnosis: AML Pt seen today in follow up, she really has not improved much, she still has intermittent episodes of SOB and chest pain, Cardiology has evaluated pt and no cardiac source identified, her appetite is poor, energy levels are poor, she does not feel she is getting any better. Objective - Vital Signs Vital signs: Vital Signs Temp 98.2 F 02/05/17 07:00 Pulse 84 02/05/17 16:40 Resp 20 02/05/17 16:00 BP 128/71 02/05/17 07:00 Pulse Ox 93 L 02/05/17 07:00 Intake & Output 02/04/17 02/05/17 02/05/17 18:59 06:59 18:59 Intake Total 310 550 Balance 310 550 Weight 58.967 kg Intake: IV 550 Piperacillin-Tazobactam 3 50 .375 gm In Dextrose/Water 1 50ml.bag @ 12.5 mls/hr IVPB Q8HR [facility] Rx#: [id number] Sodium Chloride 0.45% 1, 400 000 ml @ 10 mls/hr IV . Q24H [facility] Rx#:[id number] Sodium Ferric Gluconat- 100 Sucrose 125 mg In Sodium Chloride 0.9% 100 ml @ 100 mls/hr IVPB HS [facility] Rx #:[id number] Blood Product 310 Rc As-1 Unit 310 [id number] Other: Voiding Method Toilet Toilet Toilet Bedside Commode Bedside Commode Bedside Commode # Voids 3 2 4 # Bowel Movements 1 2 - Exam Pt sitting up at bedside, no visible distress noted. - Constitutional General appearance: Present: cooperative, no acute distress, thin - Neurologic Neurologic: Present: CNII-XII intact - Musculoskeletal Musculoskeletal: Present: strength equal bilaterally - Psychiatric Psychiatric: Present: A&O x's 3, appropriate affect, intact judgment & insight - Labs CBC & Chem 7: 02/05/17 07:13 02/05/17 07:13 Labs: Abnormal Lab Results - Last 24 Hours (Table) 02/05/17 02/05/17 Range/Units 07:13 07:13 WBC 68.4 H* (3.8-10.6) k/uL RBC 2.87 L (3.80-5.40) m/uL Hgb 8.8 L D (11.4-16.0) gm/dL Hct 26.7 L (34.0-46.0) % RDW 18.6 H (11.5-15.5) % Plt Count 104 L (150-450) k/uL Monocytes # (Manual) 1.7 H (0-1.0) k/uL Sodium 150 H (137-145) mmol/L Chloride 116 H (98-107) mmol/L BUN 22 H (7-17) mg/dL Creatinine 1.37 H (0.52-1.04) mg/dL Glucose 101 H (74-99) mg/dL Calcium 8.0 L (8.4-10.2) mg/dL Assessment and Plan (1) Leukemia Status: Acute (2) Bicytopenia Status: Acute Plan: Dr. Floyd met with pt and family at bedside. Her WBC continues to elevate rapidly which is the reason that she is unable to recover and feel better. Pt is not a candidate for AML treatment due to performance status and age, AML treatment is extraordinarily toxic and would likely hasten pt and without treatment AML is fatal. Recommendation is for comfort measures only. Pt and family would like to have home hospice. Social Work and hospice have been consulted, will await home set up. Cont current medications, all invasive procedures including VS and lab draws discontinued.
[2017-02-05] MEDS ORDERED: METOPROLOL TARTRATE 25 MG TAB PO SCH (21:00)
--- NOTE | 2017-02-05 22:32 | PN ---
DATE OF SERVICE: 02/05/2017 REASON FOR FOLLOWUP: 1. Pneumonia. 2. Oral thrush. INTERVAL HISTORY: The patient is afebrile. She has been breathing comfortably. The soreness in the throat seems to have improved. No dysphagia. The patient denies having any chest pain. Cough has decreased in intensity and is less productive now. No abdominal pain and no diarrhea. On examination, blood pressure is 122/71 with a pulse of 88, temperature 98.2. She is 93% on 2 L nasal cannula. General description is an elderly female up in the bed in no distress. RESPIRATORY SYSTEM: Unlabored breathing. Some decreased breath sounds in the base. No wheeze. HEART: S1, S2. Regular rate and rhythm. ABDOMEN: Soft. No tenderness. EXTREMITIES: No edema of the feet. LABS: Hemoglobin 8.8 with a white count of 68,000. BUN of 22 with creatinine 1.37. She did have a chest x-ray being read as correlate to exclude CHF; right pleural effusion suspected. DIAGNOSTIC IMPRESSION AND PLAN: Patient admitted to hospital with a fever, elevated white count, concern about pneumonia. While the patient did have significant jump in her white count, it could be more likely secondary to underlying hematological malignancy. Clinically doubt any worsening infection, as the patient is afebrile and respiratory status has improved rather than worsening. She did have a component of oral thrush that may have contributed to some of the elevated white count, but no diarrhea or any other focus of infection. She is currently on broad-spectrum antibiotics. That may be continued. Await further evaluation by Oncology. Continue supportive care. DAVE
[2017-02-05] MEDS: SODIUM FERRIC GLUCONAT-SUCROSE 125 MG in SODIUM CHLORIDE 0.9% 100 ML IVPB SCH (23:52)
[2017-02-06] MEDS: PIPERACILLIN-TAZOBACTAM 3.375 GM in DEXTROSE/WATER 1 50ML.BAG IVPB SCH ×2 (01:34→09:11)
[2017-02-06] MEDS: LEVOTHYROXINE 88 MCG TAB PO SCH (06:39)
[2017-02-06] MEDS: IPRATROPIUM-ALBUTEROL 3 ML NEB INHALATION SCH ×3 (07:20→16:42)
[2017-02-06] MEDS: BUDESONIDE 0.5 MG/2 ML NEBU INHALATION SCH (07:20)
[2017-02-06] MEDS: PANTOPRAZOLE 40 MG TABLET PO SCH (08:58)
[2017-02-06] MEDS: NYSTATIN 100,000 UNIT/ML SUSP 500,000 UNIT/5 ML CUP PO SCH ×2 (08:58→12:04)
[2017-02-06] MEDS: HEPARIN SODIUM,PORCINE 5,000 UNIT/ML 1 ML VIAL SQ SCH (08:58)
[2017-02-06] MEDS: ATORVASTATIN 40 MG TAB PO SCH (08:58)
[2017-02-06] MEDS: CLOTRIMAZOLE TROCHE 10 MG TROCHE MUCOUS MEM SCH ×2 (08:58→12:04)
[2017-02-06] MEDS: FLUCONAZOLE 100 MG TAB PO SCH (08:59)
[2017-02-06] MEDS ORDERED: FUROSEMIDE 40 MG TAB PO SCH (09:00)
[2017-02-06] MEDS: predniSONE 10 MG TAB PO SCH (09:00)
[2017-02-06] MEDS ORDERED: METOPROLOL TARTRATE 50 MG TAB PO SCH (09:00)
[2017-02-06] MEDS: FUROSEMIDE 40 MG TAB PO SCH (09:00)
[2017-02-06] MEDS ORDERED: VANCOMYCIN TROUGH DUE 1 EACH MISC MISCELLANE ONE (11:00)
[2017-02-06] MEDS: VANCOMYCIN 1,250 MG in SODIUM CHLORIDE 0.9% 250 ML IVPB SCH (12:02)
[2017-02-06] MEDS: SODIUM CHLORIDE 0.45% 1,000 ML IV SCH (12:07)
--- NOTE | 2017-02-06 15:24 | P.DS ---
Providers Date of admission: 01/27/17 20:03 Attending physician: Derik Pickering Consults: 01/27/17 20:06 Consult Physician Stat Consulting Provider: Kelvin Floyd Consult Reason/Comments: Leukemia Do you want consulting provider notified?: Yes 01/31/17 15:50 Consult Physician Routine Consulting Provider: Jania Villegas Consult Reason/Comments: pneumonia Do you want consulting provider notified?: Yes 02/02/17 08:26 Consult Physician Routine Consulting Provider: Gem Marcum Consult Reason/Comments: possible infection Do you want consulting provider notified?: Yes 02/03/17 22:55 Consult Physician Stat Consulting Provider: Aleja Hernandez Consult Reason/Comments: chest pain Do you want consulting provider notified?: Yes Primary care physician: Physician Nonstaff Hospital Course: 81-year-old female presented on the day of admission to the emergency room with no appetite decreased endurance increased fatigue feverish. Patient stated that she was just released from the hospital last week at [facility] the patient states she is being treated for pneumonia. Patient stated that she took at a by [facility] for 3 days and then was discharged. Patient states was hospitalized for 8 days. Patient states she currently has been diagnosed with leukemia. Patient states she had one treatment of chemotherapy and ended up in the hospital because of the chest pain. Patient stated that her primary oncologist was Dr. Felder The chest x-ray showed right-sided infiltrate. Patient was followed by pulmonology and infectious disease. Patient was started on antibiotic therapy. CAT scan that was done in January did show right side groundglass opacity sees the right upper lobe and the right lower lobe. Patient was admitted with hospital-acquired pneumonia with acute hypoxic respiratory failure. Patient condition continued to deteriorate the white count continued to go up patient continued to have poor appetite poor endurance and poor performance Dr. Felder meet with the patient and the patient's daughter. Did go over the plan of care. Patient verbalized wanting to be involved in hospice care. Patient continued to have a poor appetite poor energy level stated that she was not getting any better. Oncologist dr felder felt that the leukemia had worsened the WBCs continue to elevate rapidly which is the reason that she's been unable to recover. Patient is not a candidate for AML treatment due to performance status and age . AML treatment is extraordinarily toxic and would likely hasten patient's without treatment AML is fatal recommendations for comfort measures only and daughter opted for hospice care Terminal diagnosis AML rapidly progressing not a candidate for AML treatment due to poor performance status and age , treatment is extraordinarily toxic and would likely hasten patient's and without treatment AML is fatal Impression Present on admission sirs meets sepsis criteria suspect due to right side pneumonia healthcare acquired due to a recent hospitalization at an outside facility Rapid progression of AML worsening WBCs not a candidate for AML treatment Hypernatremia Moderate protein calorie malnutrition suspect due to poor caloric intake Tobacco abuse Leukocytosis Bicytopenia Small right pleural effusion Shortness of breath multifactorial acute hypoxic respiratory failure likely due to acute exacerbation of COPD with right side pneumonia healthcare acquired with sepsis CAT scan of the chest right upper lobe right lower lobe nodule opacities Persistent leukocytosis elevated white count suspect due to AML Leukocytosis present on admission suspect due to AML Episode of chest pain felt to be atypical reactive enzymes 3 sets negative Echocardiogram obtained on February 04 shows left ventricular systolic function low normal with an EF between 50 and 55% Physical debility failure to thrive poor performance status due to comorbidities limited mobility Per advance directive patient is a no CODE STATUS The above dictated assessment and findings were discussed with dr pickering Impression and the plan of care have been dictated as directed. Reina Golden nurse practitioner acting as a scribe for dr pickering Patient Condition at Discharge: Fair Plan - Discharge Summary New Discharge Prescriptions: ALPRAZolam [Xanax] 0.5 mg PO QID PRN #30 tab PRN Reason: Anxiety Discharge Medication List ALPRAZolam [Xanax] 0.5 mg PO QID PRN #30 tab 02/06/17 [Rx] Follow up Appointment(s)/Referral(s): Nonstaff,Physician [Primary Care Provider] - 1-2 days Derik Pickering MD [STAFF PHYSICIAN] - 1 Week Discharge Disposition: [facility]
[2017-02-06 16:10] VITALS: BP 132/59; RESP 18; TEMP 97.3
--- NOTE | 2017-02-06 16:14 | PN ---
DATE OF SERVICE: 02/06/2017 REASON FOR FOLLOWUP: Pneumonia and oral thrush. INTERVAL HISTORY: The patient is afebrile, has been breathing comfortably. Denies significant chest pain. No cough. No abdominal pain. No nausea, vomiting or any diarrhea. On examination, blood pressure is 140/71 with a pulse of 83. Temperature 97.7. She is 96% on 2 L nasal cannula. General description is an elderly female lying in bed in no distress. HEENT EXAMINATION: Oral thrush improved. LUNGS: Unlabored breathing. Clear to auscultation anteriorly. HEART: S1, S2. Regular rate and rhythm. ABDOMEN: Soft. No tenderness. LABS: No new labs have been obtained today. DIAGNOSTIC IMPRESSION AND PLAN: Patient admitted to hospital with sepsis with a component of pneumonia and also with oral thrush now. So far blood culture is negative. Sputum was not collected. Patient also has some acute leukemia. Oncology has talked to the patient and they are leaning more towards comfort-oriented care, which will be followed at this point. Antibiotic can be safely discontinued. Family was present at the bedside. Their questions and concerns were answered.
[2017-02-06 16:45] VITALS: PULSE 80
--- NOTE | 2017-02-06 19:00 | DS ---
DATE OF ADMISSION: 01/27/2017 DATE OF DISCHARGE: 02/06/2017 SUBJECTIVE: This is an 81-year-old white female who has spoken with Oncology for possible comfort care. Unable to treat the acute myelogenous leukemia, white count. Discussed case with Dr. Marcum. ( ) at this point leukemia, not pneumonia. She is going to be made comfort care with hospice care, possible [facility] treatment. VITAL SIGNS: Stable, afebrile. CARDIOVASCULAR: S1, S2. LUNGS: Transmitted upper sounds. GI: Soft. HEMATOLOGIC: Negative Homans. ASSESSMENT: 1. Pneumonia. 2. Acute myelogenous leukemia. 3. Acute respiratory insufficiency with weakness. Hospice care is pending. Continue with antibiotics per Infectious Disease and Lasix for congestive heart failure, fluid overload will be given.
[2017-02-07] MEDS ORDERED: VANCOMYCIN 1,250 MG in SODIUM CHLORIDE 0.9% 250 ML IVPB SCH (12:00)
[2017-02-09 04:11] LABS: Mycoplasma IgG Antibody (EIA) 0.93 INDEX (<=0.90); Mycoplasma IgM Antibody 0.77 INDEX (<=0.90)
[2017-02-10 13:27] LABS: Alternaria alternata IgE <0.35 kU/L (<0.35); Asperg. fumagatus IgE <0.35 kU/L (<0.35); Asperg. fumagatus IgE Class CLASS 0; Birch(Com.Silvr) IgE Class CLASS 0; Cat Epith & Dander IgE <0.35 kU/L (<0.35); Cat Epith & Dander IgE Class CLASS 0; Clad herbarum IgE <0.35 kU/L (<0.35); Clad herbarum IgE Class CLASS 0; Common Ragweed IgE Class CLASS 0; Dermato. Pteronyssinus Class CLASS 0; Dermato. Pteronyssinus IgE <0.35 kU/L (<0.35); Dermato. farinae IgE <0.35 kU/L (<0.35); Dermato. farinae IgE Class CLASS 0; Maple (Box Elder) IgE <0.35 kU/L (<0.35); Maple (Box Elder) IgE Class CLASS 0; Mountain Cedar IgE <0.35 kU/L (<0.35); Mountain Cedar IgE Class CLASS 0; Mouse Urine IgE Class CLASS 0; Mouse Urine Proteins,IgE <0.35 kU/L (<0.35); Mulberry IgE Class CLASS 0; Nettle IgE <0.35 kU/L (<0.35); Nettle IgE Class CLASS 0; Oak IgE <0.35 kU/L (<0.35); Penicillium notatum IgE Class CLASS 0; Rough Marshelder IgE <0.35 kU/L (<0.35); Rough Marshelder IgE Class CLASS 0; Timothy Grass IgE <0.35 kU/L (<0.35); Timothy Grass IgE Class CLASS 0; White Ash IgE Class CLASS 0
[2017-02-12 00:53] LABS: Alternaria tenius IgG 9.8 mcg/mL (< 13.6); Cladosporium herbarium IgG 22.5 mcg/mL (< 14.7); Phoma ssp. IgG 9.9 mcg/mL (< 6.6); Saccaharomospora viridis Not detected (Not detected); Saccaharopoly. rectivirgula Not detected (Not detected)
== END 2017-02-06 18:23 | disposition hospice, inpatient (51) | DRG 871 ==
LOC: EC 17:55 → 5ONC 20:03
PROVIDERS: ADMIT Family Medicine; ATTEND Family Medicine
DX: A41.9 Sepsis, unspecified organism (principal); J69.0 Pneumonitis due to inhalation of food and vomit; J96.01 Acute respiratory failure with hypoxia; C92.00 Acute myeloblastic leukemia, not having achieved remission; D61.818 Other pancytopenia; E44.0 Moderate protein-calorie malnutrition; E87.0 Hyperosmolality and hypernatremia; R64 Cachexia; B37.0 Candidal stomatitis; I13.0 Hypertensive heart and chronic kidney disease with heart failure and stage 1 through stage 4 chronic kidney disease, or unspecified chronic kidney disease; C85.90 Non-Hodgkin lymphoma, unspecified, unspecified site; J44.1 Chronic obstructive pulmonary disease with (acute) exacerbation; I50.9 Heart failure, unspecified; E03.9 Hypothyroidism, unspecified; E78.5 Hyperlipidemia, unspecified; E83.51 Hypocalcemia; F03.90 Unspecified dementia, unspecified severity, without behavioral disturbance, psychotic disturbance, mood disturbance, and anxiety; F17.210 Nicotine dependence, cigarettes, uncomplicated; I25.10 Atherosclerotic heart disease of native coronary artery without angina pectoris; I49.3 Ventricular premature depolarization; M19.90 Unspecified osteoarthritis, unspecified site; N18.9 Chronic kidney disease, unspecified; R62.7 Adult failure to thrive; Y95 Nosocomial condition; Z51.5 Encounter for palliative care; Z79.899 Other long term (current) drug therapy; Z80.8 Family history of malignant neoplasm of other organs or systems; Z82.49 Family history of ischemic heart disease and other diseases of the circulatory system; Z87.01 Personal history of pneumonia (recurrent)
CPT/HCPCS: 36415; 71020; 71250; 80048; 80053; 80202; 81001; 82550; 82553; 82785; 83605; 84484; 85025; 86001; 86003; 86606; 86609; 86738; 86850; 86900; 86901; 86920; 87040; 87086; 87449; 87502; 93005; 93306; 94640; 94760